=== PATIENT | female | born 1950 | race Two or more races ===

== ENCOUNTER → 2017-05-02 | Outpatient (CLI) | payer BC ==
[2014-03-02 05:23] VITALS: BP 116/54
[~2017-05-02] MED LIST: ACET325T9 PO; ASPI-482 PO; ATOR10TA PO
--- NOTE | 2017-05-02 14:09 | KCIC ---
Examination: Ultrasound soft tissue neck HISTORY: History of lump in the left neck COMPARISON: None available Findings: The visualized left neck there is a 1.5 cm kidney gibson shaped structure inferior to the left ear likely a lymph node. The visualized parotid gland appears somewhat mildly heterogenous. IMPRESSION: 1. 1.5 cm lymph node identified inferior to the to the left ear. 2. Mild heterogeneous appearance of the parotid gland, nonspecific. CT can be performed if there is suspicion of parotitis. Electronically signed by: Apollo Garcia MD (05/02/2017 2:06 PM) [place] [id number]
== END | disposition home or self-care (01) ==
LOC: KCIC US 12:59
PROVIDERS: ATTEND Nurse Practitioner Family
DX: R22.1 Localized swelling, mass and lump, neck (principal)
CPT/HCPCS: 76536

== ENCOUNTER → 2019-06-12 | Outpatient (CLI) | payer MEDICARE ==
[2014-03-02 05:23] VITALS: BP 116/54
--- NOTE | 2019-06-12 13:44 | KCIC ---
EXAM: Right hip, 2 views; lumbar spine, 5 views. HISTORY: Pain. COMPARISON: None. FINDINGS: Right hip: 2 views of the right hip are obtained. There is no fracture, dislocation or subluxation. There is moderate marginal femoral head and acetabular spurring. There is degenerative subchondral sclerosis involving the articular aspect of the femoral head and acetabulum. There is partial this lesion of a left hip arthroplasty. There is a clip within the right lower quadrant. Lumbar spine: 5 views of the lumbar spine are obtained. There is minimal grade 1 anterolisthesis of L4 and L5 and L5 on S1, measuring 2 mm. There is minimal retrolisthesis of L2 on L3 and L3 on L4, a component of which is likely projectional. There is a chronic appearing mild superior endplate depression at T12. There is endplate remodeling at all levels. There is facet arthropathy predominantly at the mid lower lumbar levels. IMPRESSION: 1. Moderate right hip osteoarthritis. 2. Multilevel degenerative change involving the lumbar spine, described above. Electronically signed by: Malinda Joseph MD (06/12/2019 1:41 PM) [place] [id number]
--- NOTE | 2019-06-12 17:44 | KCIC ---
Bilateral digital screening mammograms with 3-D tomosynthesis: Reason for examination: Routine screening. Comparison is made to previous studies dated 07/12/2016 and 12/20/2014. Bilateral mammograms in CC and oblique projections were obtained with 2-D imaging and 3-D tomosynthesis imaging on a Siemens Inspiration unit and reviewed on the workstation. Interpretation was made with the benefit of CAD. The skin and nipples show no abnormalities. No abnormal axillary lymph nodes are seen. The breast parenchyma shows scattered fatty and fibroglandular density. (Breast density: Category B.) There appears to be a new nodular parenchymal density in the 10:00 B position of the right breast. There is also a small circumscribed nodule in the retroareolar 3:00 position of the left breast. Further evaluation of these findings with ultrasound is recommended. There are no other dominant masses, suspicious calcifications or architectural distortion. Impression: Nodular densities at the 10:00 B position of the right breast and retroareolar 3:00 position of the left breast. Recommend further evaluation with ultrasound. BI-RADS Category 0: Incomplete. Needs additional imaging evaluation. "Our facility is accredited by the [employer] Mammography Program." This patient's information has been entered into a reminder system for the patient to be notified with the results of her examination and a target date for the next mammogram. Electronically signed by: Eduarda Adorno MD (06/12/2019 5:41 PM) [facility]
== END | disposition home or self-care (01) ==
LOC: KCIC MAMMO 12:30
PROVIDERS: ATTEND Family Medicine
DX: N64.89 Other specified disorders of breast (principal); N63.20 Unspecified lump in the left breast, unspecified quadrant; N63.10 Unspecified lump in the right breast, unspecified quadrant; M16.11 Unilateral primary osteoarthritis, right hip; M47.896 Other spondylosis, lumbar region; Z12.31 Encounter for screening mammogram for malignant neoplasm of breast
CPT/HCPCS: 72110; 73502; 77063; 77067

== ENCOUNTER → 2019-06-26 | Outpatient (CLI) | payer MEDICARE ==
[2014-03-02 05:23] VITALS: BP 116/54
--- NOTE | 2019-06-26 10:21 | KCIC ---
BREAST BILATERAL Clinical Indication: Abnormal screening mammogram. Comparison: Bilateral mammogram 06/12/2019 and 2016. TECHNIQUE: Real-time ultrasound imaging of the right and left breast is performed. Findings: Right: No definite sonographic abnormality is identified at the 10:00 B position. There is no abnormal axillary lymph node. Left: Corresponding to the nodular density in the left breast retroareolar 3:00 position, there is a solid-appearing mass measuring 5 x 4 x 5 mm. Radially the mass appears to be taller than wide. No posterior shadowing is appreciated. There is no abnormal axillary lymph node. IMPRESSION: 1. In the retroareolar 3:00 position of the left breast there is a 5 mm mass with indeterminate features. Recommend further evaluation with ultrasound-guided biopsy. 2. Yard Person discussed the results with the patient. Dr. Thomas left a message for Dr. Herrmann psychiatric assistant at 10:17 AM. 3. BI-RADS Category 4, suspicious. Electronically signed by: Raul Thomas MD (06/26/2019 10:18 AM) [facility]
== END | disposition home or self-care (01) ==
LOC: KCIC US 09:01
PROVIDERS: ATTEND Family Medicine
DX: N63.23 Unspecified lump in the left breast, lower outer quadrant (principal)
CPT/HCPCS: 76641

== ENCOUNTER → 2019-07-24 | Outpatient (CLI) | payer MEDICARE ==
[2014-03-02 05:23] VITALS: BP 116/54
[~2019-07-24] MED LIST changes: +BIMA2.5D EACHEYE; +VENTOLIN HFA8 G1 IH
--- NOTE | 2019-07-24 16:02 | RAD ---
Examination: US GUID NDL PLACE/ASPI/BX, DIGITAL DIAGNOSTIC LT History: Left breast mass Comparison/Correlation: Left breast ultrasound exam 06/26/2019 Findings: Risks and benefits of ultrasound-guided left breast biopsy with marker placement were discussed with the patient and informed consent was obtained. Cleansing with alcohol based solution was performed about the nipple and lateral aspect of the left breast. Sterile drapes were placed. A total of 7 cc 1 percent lidocaine was administered in the lateral approach towards the mass. Additional lidocaine was provided medial to the mass with a 22-gauge spinal needle after scalpel incision was made and an introducer was placed. 12-gauge core biopsy needle was placed in prefired state into the mass lesion. Total 4 passes were made and 4 specimens were placed within the formalin chart. Minimal bleeding was noted during the examination minimal hemorrhage along the needle tract was seen during the exam. Clip marker was then deployed at the approximate site of the mass lesion which is no longer clearly delineated following obtaining of the 4 passes. The patient tolerated procedure well without immediate complications. Two-view left mammographic examination was then performed demonstrating the clip marker in place. A mass lesion seen on previous mammographic examination could not be delineated on this postbiopsy exam. No collection suspected. Impression: Successful left breast biopsy by ultrasound guidance. The patient tolerated the procedure well without significant immediate complications. Electronically signed by: Willian Dacosta MD (07/24/2019 3:59 PM) [facility]
--- NOTE | 2019-07-25 15:07 | PATHOLOGY ---
[facility] Accession Number: [id number] . 01 Material submitted: . breast - LEFT BREAST MASS, 3:00 RETROAREOLAR. Modifiers: left, 3:00 . 01 Clinical history: . Left breast mass 3:00 retroareolar 0.4 cm . 02 Diagnosis: Breast tissue, left breast subareolar mass at 3:00: - Intraductal papilloma with periductal sclerosis. (JPM:juan antonio; 07/25/2019) QMS 07/25/2019 1331 Local . 02 Comment: There is no atypia or evidence of malignancy. . 02 Electronically signed: . Chris Montez MD, Pathologist NPI- [id number] . 01 Gross description: . The specimen is received in formalin, labeled "Erika Alvarado, left breast" and consists of 4 needle cores of pink-saenz fibroadipose tissue measuring between 0.4 cm and 1.3 cm in length and 0.2-0.3 cm each in diameter. They are entirely submitted in A1-A3. The time obtained is 9:10 AM on 07/24/2019 and the time of formalin is 11:15 AM. The cold ischemic time is 5 minutes and the total formalin fixation time is greater than 6 hours but less than 72 hours. (SDY; 07/24/2019) SYU/SYU 07/24/2019 1521 Local . 02 Pathologist provided ICD-10: D24.2 . 02 CPT . 259627 Specimen Comment: A courtesy copy of this report has been sent to [phone] Specimen Comment: [phone], Specimen Comment: Report sent to ,DR MORRISSEY / DR JACOBSON Performed at: 01 [facility] [address], [place] [id number] MD Mateo Mena MD Phone: [phone] Performed at: 02 [facility] [address], [place] [id number] MD Chris Montez MD Phone: [phone]
== END ==
LOC: US 07:53
PROVIDERS: ATTEND Surgery
DX: N63.20 Unspecified lump in the left breast, unspecified quadrant (principal); D24.2 Benign neoplasm of left breast
CPT/HCPCS: 19083; 77065; 88305; C1713; 19081; 76942

== ENCOUNTER 2019-08-02 07:35 | Day surgery (SDC) | payer MEDICARE ==
[~2019-08-02] VITALS: Ht 155.6 cm; Wt 110.0 kg
[~2019-08-02 07:35] MED LIST changes: +HYDROmorphone 2 MG/ML VIAL IV PRN; +IV RINGERS,LACTATED 1000ML 1,000 ML IV SCH; +LIDOCAINE 1% PF 2 ML VIAL. ID PRN; +MORPHINE SULFATE 2 MG/ML VIAL. IV PRN; +ONDANSETRON PF 4 MG/2 ML VIAL. IV PRN; +PROCHLORPERAZINE 10 MG/2 ML VIAL. IV PRN; +fentaNYL PF VIAL 100 MCG/2 ML VIAL IV PRN
[2019-08-02] MEDS ORDERED: LIDOCAINE 2% PF 5 ML VIAL. ONE (08:31)
[2019-08-02] MEDS ORDERED: PROPOFOL 20 ML IV ONE (08:31)
[2019-08-02] MEDS ORDERED: DEXAMETHASONE SOD PHOS 4 MG/ML VIAL ONE (08:31)
[2019-08-02] MEDS ORDERED: ONDANSETRON PF 4 MG/2 ML VIAL. ONE (08:32)
[2019-08-02] MEDS ORDERED: fentaNYL PF VIAL 100 MCG/2 ML VIAL ONE (08:32)
[2019-08-02] MEDS ORDERED: BUPIVACAINE MPF 0.5% 30 ML VIAL. ONE (09:00)
[2019-08-02] MEDS ORDERED: MIDAZOLAM HCL/PF 2 MG/2 ML VIAL. ONE (10:21)
[2019-08-02] MEDS ORDERED: ePHEDrine PF IN SALINE 50 MG/10 ML SYRINGE. IV ONE (10:35)
--- NOTE | 2019-08-02 11:04 | RAD ---
DATE: 08/02/2019. EXAM: Ultrasound-guided left breast needle localization, digital left diagnostic mammography. HISTORY: Intraductal papilloma. Needle localization is requested.. COMPARISON: 07/24/2019. FINDINGS: Breast Density: SCATTERED The breast parenchyma shows scattered fibroglandular densities. Breast parenchyma level B.. The procedure along with its risks and benefits worst point to the patient. She agreed to proceed. A timeout procedure was performed. The biopsy duct and postbiopsy clip at the left 3:00 periareolar position were visualized sonographically. The overlying skin was sterilely prepped and infiltrated with 1% lidocaine for local anesthesia. Under ultrasound guidance, a needle-wire system was advanced through and beyond the targeted duct adjacent to the clip. The wire was deployed and the needle withdrawn. There were no immediate complications. Digital images of the left breast were obtained in CC and low projections and interpreted on a dedicated workstation. Post localization mammography demonstrates the tip of the wire at the postbiopsy clip. The specimen radiograph demonstrates the wire and postbiopsy clip in the specimen. Impression: 1. Successful ultrasound-guided left breast needle localization. 2. Post localization mammography demonstrates the wire in concordance with a target. 3. The wire and postbiopsy clip are included on the specimen radiograph.
[2019-08-02] MEDS ORDERED: SEVOFLURANE 31 TO 60 MINUTES. IH ONE (11:05)
--- NOTE | 2019-08-02 11:18 | DISCH ---
DISCHARGE INSTRUCTIONS Condition on Discharge Condition on Discharge: Stable Activity After Discharge Activity Instructions for Disc: Activity as tolerated, Avoid exertion Lifting Instructions after Dis: No heavy lifting Driving Instructions after Dis: Do not drive today, Other, see below Diet after Discharge Diet after Discharge: Cardiac Diet Texture: Regular Wound Incision Care Wound/Incision Care: Ice to area for comfort Other wound/incision instructi: may shower Tuesday Contacting the DRMaikol after DC Call your doctor for: Concerns you may have Follow-Up Follow up with: Joseph two weeks Treatment/Equipment after DC Adaptive Equipment Issued: None KRISTAL MORRISSEY MD Aug 02, 2019 11:18
[2019-08-02] MEDS ORDERED: HYDROcodone/APAP 5/325MG 1 TAB TABLET PO ONE (11:45)
[2019-08-02 12:10] VITALS: BP 102/51
--- NOTE | 2019-08-02 12:22 | PDOC ---
BRIEF OPERATIVE NOTE Date: Aug 02, 2019 Pre-Op Diagnosis papilloma left breast Post-Op Diagnosis same Procedure Performed excision after needle localization Surgeon Joseph Anesthesia Type: General Blood Loss 5cc IV Fluid 600cc Specimens Obtained left breast tissue, 2:00 Findings specimen radiograph shows wire and biopsy marker Complications none Operative Note Wk # [id number] KRISTAL MORRISSEY MD Aug 02, 2019 12:22
--- NOTE | 2019-08-02 14:44 | OP ---
DATE OF SURGERY: 08/02/2019 PREOPERATIVE DIAGNOSIS: Papilloma, left breast. POSTOPERATIVE DIAGNOSIS: Papilloma, left breast. PROCEDURE: Excision after needle localization. SURGEON: Kristal Morrissey MD ANESTHESIA: General LMA. ESTIMATED BLOOD LOSS: 5 mL. INTRAVENOUS FLUIDS: 600 mL. INDICATIONS: The patient is a 68-year-old with a biopsy showing papilloma. She is brought for excision. OPERATIVE REPORT: The patient went to the mammography suite where she underwent needle localization of the previously placed biopsy clip associated with the changes. She was then brought to the OR, given a general LMA and the left breast prepped and draped in usual sterile fashion. A circumareolar incision from 12-3 o'clock was infiltrated with local anesthetic, incised and dissection carried down to the wire. The tissue around the tip of the wire corresponding to the mammographic changes was excised. Specimen sent to Radiology where specimen radiograph confirmed the presence of the biopsy clip and the wire. Hemostasis with cautery. When a correct sponge count was obtained, the wound was closed by approximating the breast tissue with 3-0 Vicryl. Skin closed with a subcuticular 4-0 Monocryl. Steri-Strips and sterile dressing applied. The patient awakened from her anesthetic and taken to the recovery room in satisfactory condition. KRISTAL MORRISSEY MD DR: KALEN/nts JOB#: [id number] / [id number]
[2019-08-28] MEDS ORDERED: LATA2.5D3 EACHEYE (10:19)
[2019-08-28] MEDS ORDERED: ATOR20TA58 PO (10:20)
== END 2019-08-02 12:40 | disposition home or self-care (01) ==
LOC: SURG 07:35
PROVIDERS: ATTEND Surgery
DX: D24.2 Benign neoplasm of left breast (principal); E78.00 Pure hypercholesterolemia, unspecified; M79.7 Fibromyalgia; H40.9 Unspecified glaucoma; E66.01 Morbid (severe) obesity due to excess calories; Z68.41 Body mass index [BMI] 40.0-44.9, adult; Z96.642 Presence of left artificial hip joint; Z87.891 Personal history of nicotine dependence; Z98.890 Other specified postprocedural states
CPT/HCPCS: 19083; 19125; 76098; 77065; 88305; A7015; J0171; J1100; J1956; J2001; J2250; J2405; J2704; J3010; J3490; 76942

== ENCOUNTER → 2019-08-28 | Outpatient (CLI) | payer MEDICARE ==
[2019-08-02 12:10] VITALS: BP 102/51
[~2019-08-28] MED LIST changes: +ATOR20TA58 PO; -HYDROmorphone 2 MG/ML VIAL IV PRN; -IV RINGERS,LACTATED 1000ML 1,000 ML IV SCH; +LATA2.5D3 EACHEYE; -LIDOCAINE 1% PF 2 ML VIAL. ID PRN; -MORPHINE SULFATE 2 MG/ML VIAL. IV PRN; -ONDANSETRON PF 4 MG/2 ML VIAL. IV PRN; -PROCHLORPERAZINE 10 MG/2 ML VIAL. IV PRN; -fentaNYL PF VIAL 100 MCG/2 ML VIAL IV PRN
[2019-08-28 10:54] LABS: CALCIUM 9.1 mg/dL (8.5-10.1); CREATININE 0.9 mg/dL (0.6-1.0); GFR 62.3
[2019-08-28 11:07] LABS: BASO % 1 % (0-3); EOS # 0.2 x10^3/uL (0.0-0.7); EOS % 5 % (0-3); HEMATOCRIT 41.3 % (36.0-47.0); HEMOGLOBIN 13.6 g/dL (12.0-15.5); LYMPH # 1.5 x10^3/uL (1.0-4.8); LYMPH % 28 % (24-48); MEAN CORPUSCULAR HEMOGLOBIN 29 pg (25-35); MEAN CORPUSCULAR HGB CONC 33 g/dL (31-37); MEAN CORPUSCULAR VOLUME 89 fL (79-100); MONO # 0.5 x10^3/uL (0.0-1.1); MONO % 9 % (0-9); NEUT # 3.1 x10^3/uL (1.8-7.7); NEUT % 58 % (31-73); PLATELET COUNT 179 x10^3/uL (140-400); RED BLOOD COUNT 4.63 x10^6/uL (3.50-5.40); RED CELL DISTRIBUTION WIDTH 13.8 % (11.5-14.5); WHITE BLOOD COUNT 5.4 x10^3/uL (4.0-11.0)
[2019-08-28 11:15] LABS: PROTHROMBIN TIME PATIENT 12.4 SEC (11.7-14.0)
--- NOTE | 2019-08-28 11:19 | EKG ---
[facility] [address] [place] [address] Test Date: 2019-08-28 Test Time: 10:55:18 Pat Name: BHUMIKA RAMON Department: Room: Gender: F Insurance Rater: : 1950 Requested By: CHRIS INIGUEZ Order Number: [id number] Reading MD: Perry Lopez Measurements Intervals [place] Rate: 68 P: 47 MD: 174 QRS: 41 QRSD: 78 T: 63 QT: 390 QTc: 419 Interpretive Statements SINUS RHYTHM NORMAL ECG RI6.01 Compared to ECG 02/27/2014 20:54:03 No significant changes Electronically Signed On 08-30-2019 11:30:00 ADMINISTRATIVE SECRETARY by Perry Lopez
--- NOTE | 2019-08-28 12:17 | RAD ---
EXAM: Chest, 2 views. HISTORY: Hip surgery. Preoperative evaluation. COMPARISON: None. FINDINGS: 2 views of the chest are obtained. There is no infiltrate, pleural effusion or pneumothorax. The heart is normal in size. IMPRESSION: No acute pulmonary finding. Electronically signed by: Malinda Joseph MD (08/28/2019 12:14 PM) [facility]
[2019-08-29 00:07] LABS: HEMOGLOBIN A1C 5.7 % (4.8-5.6)
--- NOTE | 2019-08-29 14:30 | NUR ---
Faxed pretesting results to Dr Sanders and Dr Herrmann office. Left a message with Gege @ Dr Sanders's office regarding the order for mobic and gabapentin. Patient is hesitant to take these meds because of allergic reaction. Patient has anaphylaxis to both ibuprofen and naproxen. Gabapentin made her "foggy" and trouble with balance.
== END | disposition home or self-care (01) ==
LOC: SURGPAT 09:51
PROVIDERS: ATTEND Orthopaedic Surgery
DX: Z01.818 Encounter for other preprocedural examination (principal); M16.11 Unilateral primary osteoarthritis, right hip
CPT/HCPCS: 36415; 71046; 80048; 82040; 82306; 83036; 85025; 85610; 85651; 85730; 87641; 93005

== ENCOUNTER 2019-09-11 07:55 | Inpatient (IN) | payer MEDICARE ==
[2019-09-11] VITALS (9 sets, daily range): BP systolic 89–124; BP diastolic 47–73
[~2019-09-11] VITALS: Ht 168.3 cm; Wt 110.0 kg
[~2019-09-11 07:55] MED LIST changes: +CLINDAMYCIN 900MG PREMIX 50 ML IV PRN; +EPINEPHRINE INT ART ONE; +NORMAL SALINE INT ART ONE; +ROPIVACAINE 0.5% INT ART ONE; +TRANEXAMIC ACID 1,000 MG in IV NORMAL SALINE 50ML 50 ML INJ ONE
[2019-09-11] MEDS ORDERED: TRANEXAMIC ACID 1,000 MG in IV NORMAL SALINE 50ML 50 ML INJ ONE (08:00)
[2019-09-11] MEDS ORDERED: ACETAMINOPHEN 500 MG TABLET PO ONE ×2 (08:36→09:30)
[2019-09-11] MEDS ORDERED: WARF-78 PO (09:33)
[2019-09-11] MEDS: IV RINGERS,LACTATED 1000ML 1,000 ML IV SCH ×2 (09:36→23:05)
[2019-09-11] MEDS ORDERED: ONDANSETRON PF 4 MG/2 ML VIAL. ONE (09:36)
[2019-09-11] MEDS ORDERED: DEXAMETHASONE SOD PHOS 4 MG/ML VIAL ONE (09:36)
[2019-09-11] MEDS ORDERED: LIDOCAINE 2% PF 5 ML VIAL. ONE (09:36)
[2019-09-11] MEDS ORDERED: fentaNYL PF VIAL 100 MCG/2 ML VIAL ONE ×2 (09:36→16:07)
[2019-09-11] MEDS ORDERED: PROPOFOL 20 ML IV ONE (09:36)
[2019-09-11] MEDS ORDERED: ROCURONIUM 50 MG/5 ML VIAL. ONE (09:36)
[2019-09-11 09:44] LABS: PROTHROMBIN TIME PATIENT 12.6 SEC (11.7-14.0)
--- NOTE | 2019-09-11 11:41 | HP ---
ADMIT DATE: 09/11/2019 CHIEF COMPLAINT: Right hip pain. HISTORY OF PRESENT ILLNESS: The patient is a 68-year-old female in for planned total hip arthroplasty that has been having a several year history of right hip pain, gradually worsening, now very limiting for her activities of daily living. She also has some back problems and lumbar radiculopathy history and more remote left total hip arthroplasty by Dr. Grossman in 2009 that did very well. 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 PAST SURGICAL HISTORY: Recent breast biopsy, which she reports as negative, hysterectomy, appendectomy, left total hip arthroplasty in 2009, heart catheterization in 2013, and colonoscopy 2011. FAMILY HISTORY: Mom is at 91 years old. Father of a stroke and diabetes at 63. Brother of blood clots, and diabetes. Sister with breast cancer, diabetes and on dialysis. SOCIAL HISTORY: She is a former smoker over 10 years since she last smoked and is retired. No alcohol or drug use. MEDICATIONS: List is reviewed. ALLERGIES: INCLUDE PENICILLIN THAT GIVES HER A RASH. CODEINE ALSO A RASH. IBUPROFEN ANAPHYLAXIC, ALEVE THROAT SWELLING AND TRAMADOL A RASH AND SHE SAID SHE CANNOT TOLERATE GABAPENTIN VERY WELL DUE TO AN UNDESCRIBED, BUT LESS SEVERE REACTION. REVIEW OF SYSTEMS: CONSTITUTIONAL: Negative for any chest pain, shortness of breath, recent febrile illness. She does have a retina surgery that is pending later on due to some ongoing problems. Recent breast biopsy was negative. No other constitutional symptoms. HEENT: Atraumatic, normocephalic. HEART: Regular rate and rhythm. LUNGS: Clear to auscultation bilaterally. ABDOMEN: Benign. EXTREMITIES: Examination of the right hip shows significant pain with any attempted range of motion of the right hip. Left hip has excellent range, well-healed incision from previous total hip arthroplasty. Normal alignment and stability of bilateral knees and ankles. IMAGING: X-rays show severe joint line narrowing and degenerative changes of the right hip. IMPRESSION: Degenerative right hip. TREATMENT PLAN: I had gone over with her previously the risks, benefits, postoperative course of total hip arthroplasty including the possibility of nerve or blood vessel damage, leg length inequality, continued pain, premature wear or loosening, instability, medical or other anesthetic complications among others. She is certainly familiar with the process going through it in the past. All her questions were answered and she is going to undergo right total hip arthroplasty today, posterior approach with [facility] admission to follow. CHRIS INIGUEZ MD DR: LUTHER/abdelrahman JOB#: [id number] / [id number]
[2019-09-11] MEDS ORDERED: IV NORMAL SALINE 1000ML BAG 1,000 ML IV SCH (12:22)
[2019-09-11] MEDS ORDERED: CALCIUM CARBONATE 500 MG TAB.CHEW PO PRN (12:30)
[2019-09-11] MEDS ORDERED: DEXTROSE 50% 25 GM / 50ML DISP.SYRIN. IV PRN (12:30)
[2019-09-11] MEDS ORDERED: ZOLPIDEM 5 MG TABLET. PO PRN (12:30)
[2019-09-11] MEDS ORDERED: CLINDAMYCIN 900MG PREMIX 50 ML IV SCH (12:30)
[2019-09-11] MEDS ORDERED: diphenhydrAMINE 50 MG/ML VIAL IV PRN (12:30)
[2019-09-11] MEDS ORDERED: PROCHLORPERAZINE 5 MG TABLET. PO PRN (12:30)
[2019-09-11] MEDS ORDERED: 0.9 % SODIUM CHLORIDE 10 ML DISP.SYRIN. IV PRN (12:30)
[2019-09-11] MEDS ORDERED: MORPHINE SULFATE 2 MG/ML VIAL. IV PRN (12:30)
[2019-09-11] MEDS ORDERED: IV DEXTROSE 5% 250 ML BAG. IV PRN (12:30)
[2019-09-11] MEDS ORDERED: fentaNYL PF VIAL 100 MCG/2 ML VIAL IV PRN ×4 (12:30→15:30)
[2019-09-11] MEDS ORDERED: NEOSTIGMINE METHYLSULFATE 5 MG/5 ML SYRINGE. ONE (13:55)
[2019-09-11] MEDS ORDERED: GLYCOPYRROLATE 1 MG/5 ML VIAL. ONE (13:55)
[2019-09-11] MEDS ORDERED: SEVOFLURANE 61 TO 120 MINUTES. IH ONE (14:11)
[2019-09-11] MEDS ORDERED: IV RINGERS,LACTATED 1000ML 1,000 ML IV SCH ×2 (14:54→15:28)
[2019-09-11] MEDS: fentaNYL PF VIAL 100 MCG/2 ML VIAL IV PRN ×4 (14:56→16:20)
[2019-09-11] MEDS ORDERED: ONDANSETRON PF 4 MG/2 ML VIAL. IV PRN ×2 (15:00→15:30)
[2019-09-11] MEDS ORDERED: LIDOCAINE 1% PF 2 ML VIAL. ID PRN ×2 (15:00→15:30)
[2019-09-11] MEDS ORDERED: PROCHLORPERAZINE 10 MG/2 ML VIAL. IV PRN (15:30)
[2019-09-11] MEDS: PROCHLORPERAZINE 10 MG/2 ML VIAL. IV PRN ×2 (15:44→16:15)
[2019-09-11] MEDS ORDERED: MORPHINE SULFATE 2 MG/ML VIAL. IV ONE (15:45)
--- NOTE | 2019-09-11 15:57 | PDOC4 ---
Operative Note Operative Note Date of surgery: 09/11/2019 Preoperative diagnosis: Degenerative joint disease right hip Postoperative diagnosis: Same Operative procedure: Right total hip arthroplasty Surgeon: Marilyn Assist: Chandan Merino nurse practitioner Anesthesia: Gen. Estimated blood loss: 200 mL Complications: None Operative indications: Please see my preoperative clinic note and dictated history and physical for detailed operative indications and note that preo peratively we did cover the possibility of infection nerve or blood vessel damage leg length inequality instability premature wear or loosening medical or other anesthetic complications among others she wishes to proceed with surgical evaluation and treatment with joint center admission to follow. Operative text: Patient was identified procedure verified patient placed in the supine position on the operating table. After adequate amounts of general anesthesia were administered she was placed decubitus right side up using the Stulberg hip positioner and the right hip was prepped and draped in standard sterile fashion. After timeout was performed patient procedure identified and verified a curvilinear incision was made centered over the greater trochanter iliotibial band and gluteal fascia were divided in line with their fibers Charnley retractor was placed external rotators were divided from their insertion hip capsule was split in a T fashion hip was dislocated femoral neck cut was made with the reference cutting guide and the femoral head was noted to be degenerative measured at a size 47 mm and sent for pathological evaluation. The acetabulum was exposed contents of the fovea and labrum were excised and reaming carried up to a size 51 were excellent bleeding bone was obtained throughout and the cup sufficiently medialized to the medial wall and a size 52 [employer] coated cluster hole hemispherical cup was impacted in place in proper version a single superiorly directed screw 30 mm in length provided exc ellent fixation and a 36 mm standard liner was impacted engaging the locking mechanism. The femur was then prepared with a box osteotome and reamed and broached up to a size 13. Trial fitting revealed some instability with a standard offset component and to counteract some of her tightness in extension leg lengths were equalized with a high offset component and a -3 36 mm head whic h provided excellent stability equalized leg lengths and reproduced offset. Trial components removed thorough irrigation carried out normal saline solution using pulse lavage and a size 13 high offset synergy porous coated femoral component was impacted into place and a -3 36 mm Oxinium femoral head was impacted into place and was reduced with equivalent stability showing stability to about 70 internal rotation at 90 hip flexion. Hip capsule was repaired with #5 Ethibond external rotators were reattached transosseously with #5 Ethibond. Hemovac drain and pain catheter were placed pain catheter mixture was injected throughout the joint capsule and fascia was then closed with interrupted #5 Ethibond suture and reinforced with a #1 PDS strata fix barbed suture. Subcutaneous closure with buried Vicryl suture skin closure with 30 strata fix Monocryl. A jessica dressing with Acticoat was placed and patient was returned to recovery room in stable condition having tolerated procedure well. Chandan Merino nurse practitioner was present for the procedure and assisted in the patient positioning prepping draping retraction and skin closure CHRIS INIGUEZ MD Sep 11, 2019 15:57
--- NOTE | 2019-09-11 16:01 | RAD ---
EXAM: Pelvis and right hip, 3 views. HISTORY: Arthroplasty. COMPARISON: None. FINDINGS: A frontal view of the pelvis and frontal and lateral views of the right hip are obtained. There are bilateral hip arthroplasties in expected position. There is right hip soft tissue gas and a soft tissue drain due to recent surgery. There is a generator overlying the right flank. IMPRESSION: Bilateral hip arthroplasties in expected position. Electronically signed by: Malinda Joseph MD (09/11/2019 3:58 PM) [place] [id number]
[2019-09-11] MEDS ORDERED: WARFARIN 7.5 MG TABLET. PO ONE (16:34)
[2019-09-11] MEDS ORDERED: ALBUTEROL SULFATE 2.5 MG/3 ML NEBU. NEB PRN (17:00)
[2019-09-11] MEDS: FERROUS SULFATE 325 MG TABLET. PO SCH (17:42)
[2019-09-11] MEDS: oxyCODONE IR 5 MG TABLET PO PRN ×2 (17:45→21:55)
[2019-09-11] MEDS: ONDANSETRON PF 4 MG/2 ML VIAL. IV SCH (17:46)
[2019-09-11] MEDS: ONDANSETRON ODT 4 MG TAB.RAPDIS. PO SCH (17:46)
--- NOTE | 2019-09-11 18:25 | NUR ---
Patient arrived around 1647 in a bed from PACU. Family at bedside. Patient on oxygen at this time running at 2L. WILLY's in place. Dressing to right hip dry and intact with hemovac and IAC present. DENIA box flashing with green light. She is able to move all extremities independently without any complaints or concerns. NO numbness or tingling noted. Pulse + in bilateral feet. Her pain is being rated around a 6 and states she is super uncomfortable. Patient was transferred shortly after admission to a chair which seemed to improve her pain as well. IV in left hand infusing properly at this time without any complications. Will continue to monitor.
[2019-09-11] MEDS: CLINDAMYCIN 900MG PREMIX 50 ML IV SCH (20:22)
[2019-09-11] MEDS: ATORVASTATIN CALCIUM 20 MG TABLET PO SCH (20:23)
[2019-09-11] MEDS: LATANOPROST 0.005% OPHTH SOLUTION 2.5ML BOTTLE. OU SCH (20:23)
[2019-09-12] MEDS: CLINDAMYCIN 900MG PREMIX 50 ML IV SCH ×2 (01:11→08:56)
[2019-09-12 01:42] VITALS: BP 115/60
[2019-09-12 05:10] LABS: HEMATOCRIT 35.2 % (36.0-47.0); HEMOGLOBIN 11.3 g/dL (12.0-15.5)
[2019-09-12 05:24] LABS: PROTHROMBIN TIME PATIENT 13.6 SEC (11.7-14.0)
[2019-09-12] MEDS ORDERED: MAGNESIUM HYDROXIDE 2,400 MG/30 ML ORAL.SUSP. PO PRN (06:00)
[2019-09-12] MEDS: ONDANSETRON ODT 4 MG TAB.RAPDIS. PO SCH ×3 (06:16→12:00)
[2019-09-12] MEDS: ONDANSETRON PF 4 MG/2 ML VIAL. IV SCH ×3 (06:16→12:00)
[2019-09-12 06:17] VITALS: BP 115/69
[2019-09-12] MEDS: oxyCODONE IR 5 MG TABLET PO PRN ×5 (06:21→19:41)
--- NOTE | 2019-09-12 08:00 | NUR ---
up in the recliner for breakfast. states she did not sleep last night. she is painful and is rating her pain "6". she denies that it is a flare up of her fibromyalgia. iac given and states the recliner is helping. encouraged to sleep in recliner if it is more comfortable. plan of care discussed. . she has good sensation, motion and pulses bilateral lower extremities.
[2019-09-12] MEDS: ACETAMINOPHEN 500 MG TABLET PO SCH ×3 (08:56→21:22)
[2019-09-12] MEDS: MULTIVITAMIN with MINERAL TABLET. PO SCH (08:56)
[2019-09-12] MEDS: SENNOSIDES/DOCUSATE 8.6/50MG TABLET. PO SCH (08:56)
[2019-09-12] MEDS: FERROUS SULFATE 325 MG TABLET. PO SCH ×2 (08:56→17:18)
--- NOTE | 2019-09-12 11:15 | NUR ---
returned from 1 st rehab session early and was feeling hot flushed and "not right" thinks she is exhausted--didn't sleep last night or the night before and just tired. blood pressure is 126/73 -81-20 and o2 sat 96%. rests quietly in recliner with feet elevated in a dimmed room.
[2019-09-12] MEDS ORDERED: ONDANSETRON PF 4 MG/2 ML VIAL. IV PRN (12:00)
[2019-09-12] MEDS ORDERED: ONDANSETRON ODT 4 MG TAB.RAPDIS. PO PRN (12:00)
--- NOTE | 2019-09-12 13:21 | PDOC ---
PROGRESS NOTES Subjective Subjective Pain moderate, no other complaints. Objective Vital Signs Vital Signs Date Time Temp Pulse Resp B/P (MAP) Pulse Ox O2 Delivery O2 Flow Rate FiO2 09/12/19 13:09 Room Air 09/12/19 07:21 18 94 09/12/19 06:17 98.6 91 115/69 (84) 98.6 09/11/19 23:30 2.0 Physical Exam Dressing intact and dry. Hemovac in place. Not sure that she still has a pain catheter (op note indicates one was placed.) Thigh and calf soft. Good active range of motion of foot including dorsiflexion and plantar flexion. Cap refill at toes intact. No signs of compartment syndrome, DVT or neurovascular injury. Labs Laboratory Tests Test 09/11/19 09:14 09/12/19 04:35 Prothrombin Time 12.6 SEC (11.7-14.0) 13.6 SEC (11.7-14.0) Prothromb Time International Ratio 1.0 (0.8-1.1) 1.1 (0.8-1.1) Activated Partial Thromboplast Time 30 SEC (24-38) Hemoglobin 11.3 g/dL (12.0-15.5) Hematocrit 35.2 % (36.0-47.0) Mean Corpuscular Hemoglobin Concent 32 g/dL (31-37) Laboratory Tests Test 09/12/19 04:35 Hemoglobin 11.3 g/dL (12.0-15.5) Hematocrit 35.2 % (36.0-47.0) Mean Corpuscular Hemoglobin Concent 32 g/dL (31-37) Prothrombin Time 13.6 SEC (11.7-14.0) Prothromb Time International Ratio 1.1 (0.8-1.1) Assessment Assessment POD 1 MIKE Plan Plan of Care Continue POC GIL FUENTES MD Sep 12, 2019 13:20
[2019-09-12] MEDS ORDERED: BISACODYL 10 MG SUPP.RECT. PR PRN (16:00)
[2019-09-12] MEDS ORDERED: WARFARIN 5 MG TABLET. PO ONE (16:00)
--- NOTE | 2019-09-12 17:02 | NUR ---
Erika was able to attend second rehab without incident. several family at bedside. Dr. Daily made rounds. she has good pulses, sensation and pulses bilateral lower extremities
[2019-09-12 18:31] VITALS: BP 129/55
[2019-09-12] MEDS ORDERED: diphenhydrAMINE HCL 25 MG CAPSULE PO PRN (19:45)
[2019-09-12] MEDS: ATORVASTATIN CALCIUM 20 MG TABLET PO SCH (21:22)
[2019-09-12] MEDS: LATANOPROST 0.005% OPHTH SOLUTION 2.5ML BOTTLE. OU SCH (21:22)
--- NOTE | 2019-09-12 21:53 | NUR ---
Surgical dressing changed, IAC and Hemovac removed w/ tips intact. New DENIA dressing applied due to saturation. Site is approximated and bruised. Foam dressing over drain sites. Ambien given per request. Intends to sleep in recliner. Benadryl given for c/o generalized pruritis. No rash. Believes the Roxicodone is causing the itch.
[2019-09-13] MEDS: ACETAMINOPHEN 500 MG TABLET PO SCH ×4 (03:00→21:01)
[2019-09-13 05:11] LABS: HEMOGLOBIN 11.1 g/dL (12.0-15.5)
[2019-09-13 05:22] LABS: PROTHROMBIN TIME PATIENT 15.8 SEC (11.7-14.0)
[2019-09-13 06:05] VITALS: BP 134/78
--- NOTE | 2019-09-13 06:15 | NUR ---
Slept well in recliner after Sabrinaien x2.
--- NOTE | 2019-09-13 06:38 | PDOC ---
PROGRESS NOTES Subjective Subjective Problems overnight:Hip is sore, slept better in recliner than bed the previous night Objective Vital Signs Vital Signs Date Time Temp Pulse Resp B/P (MAP) Pulse Ox O2 Delivery O2 Flow Rate FiO2 09/13/19 06:05 98.2 76 18 134/78 (96) 94 Room Air 98.2 09/11/19 23:30 2.0 Physical Exam Leg lengths equal distal neurovascular status intact Labs Laboratory Tests Test 09/11/19 09:14 09/12/19 04:35 09/13/19 04:50 Prothrombin Time 12.6 SEC (11.7-14.0) 13.6 SEC (11.7-14.0) 15.8 SEC (11.7-14.0) Prothromb Time International Ratio 1.0 (0.8-1.1) 1.1 (0.8-1.1) 1.3 (0.8-1.1) Activated Partial Thromboplast Time 30 SEC (24-38) Hemoglobin 11.3 g/dL (12.0-15.5) 11.1 g/dL (12.0-15.5) Hematocrit 35.2 % (36.0-47.0) 34.0 % (36.0-47.0) Mean Corpuscular Hemoglobin Concent 32 g/dL (31-37) 33 g/dL (31-37) Laboratory Tests Test 09/13/19 04:50 Hemoglobin 11.1 g/dL (12.0-15.5) Hematocrit 34.0 % (36.0-47.0) Mean Corpuscular Hemoglobin Concent 33 g/dL (31-37) Prothrombin Time 15.8 SEC (11.7-14.0) Prothromb Time International Ratio 1.3 (0.8-1.1) Assessment Assessment POD# 2 total hip Plan Plan of Care WBAT, total hip precautions coumadin CHRIS INIGUEZ MD Sep 13, 2019 06:38
[2019-09-13] MEDS: SENNOSIDES/DOCUSATE 8.6/50MG TABLET. PO SCH (08:13)
[2019-09-13] MEDS: MULTIVITAMIN with MINERAL TABLET. PO SCH (08:13)
[2019-09-13] MEDS: FERROUS SULFATE 325 MG TABLET. PO SCH ×2 (08:13→16:31)
[2019-09-13] MEDS: oxyCODONE IR 5 MG TABLET PO PRN ×4 (08:14→21:01)
[2019-09-13 11:39] VITALS: BP 127/84
--- NOTE | 2019-09-13 11:42 | NUR ---
1135 Summoned to therapy room c/o feeling faint, vs 127/84-61, will continue to observe, will adjust Benadryl to 12.5mg instead of 25mg, family member at side
[2019-09-13] MEDS ORDERED: diphenhydrAMINE ORAL ELIXIR 12.5 MG/5 ML ML PO PRN (13:15)
--- NOTE | 2019-09-13 13:38 | NUR ---
Pharmacy Warfarin Dosing Note S:Pharmacy consulted to assist with anticoagulation therapy started 10/12/18 with target INR: 1.6 - 2.5 O:BHUMIKA RAMON is a 68 year old F with MIKE LABS: Last INR: 1.1 Last HGB: 11.3 Last HCT: Last PLT: Last dose of 5 mg given on 10/12/18 at 1700 Previous Regimen: Vitamin K given: N Drug Interaction Changes: Ongoing Drug Interactions: A:INR of 1.3 is below desired range. Target range for this patient is: 1.6 - 2.5 P: Warfarin dose: 5 mg Today at 1600 Bridge Therapy: Next INR due TOMORROW. Pharmacy anticoagulation service will continue to follow. JEANNE BOLANOS [facility], 09/13/19 6045
[2019-09-13] MEDS ORDERED: WARFARIN 5 MG TABLET. PO ONE (16:00)
[2019-09-13 18:34] VITALS: BP 96/59
--- NOTE | 2019-09-13 18:36 | NUR ---
Blood pressure 96/59 continuing to encourage hydration, stated she feels better this evening since taking a nap, will continue to observe
[2019-09-13] MEDS: LATANOPROST 0.005% OPHTH SOLUTION 2.5ML BOTTLE. OU SCH (21:00)
[2019-09-13] MEDS: ATORVASTATIN CALCIUM 20 MG TABLET PO SCH (21:01)
[2019-09-14] MEDS: ACETAMINOPHEN 500 MG TABLET PO SCH ×2 (03:52→09:45)
[2019-09-14] MEDS: oxyCODONE IR 5 MG TABLET PO PRN ×2 (03:52→11:47)
[2019-09-14 05:56] LABS: HEMATOCRIT 31.3 % (36.0-47.0); HEMOGLOBIN 10.5 g/dL (12.0-15.5)
[2019-09-14 06:06] LABS: PROTHROMBIN TIME PATIENT 16.9 SEC (11.7-14.0)
[2019-09-14 06:20] VITALS: BP 116/62
[2019-09-14] MEDS: FERROUS SULFATE 325 MG TABLET. PO SCH (07:49)
[2019-09-14] MEDS: MULTIVITAMIN with MINERAL TABLET. PO SCH (07:51)
[2019-09-14] MEDS: SENNOSIDES/DOCUSATE 8.6/50MG TABLET. PO SCH (07:51)
--- NOTE | 2019-09-14 10:52 | NUR ---
Pharmacy Warfarin Dosing Note S: Pharmacy consulted to assist with anticoagulation therapy started 10/12/18 O: BHUMIKA RAMON is a 68 year old F with MIKE LABS: Last INR: 1.4 Last HGB: 10.5 Last HCT: 31.3 Last PLT: - Last dose of 5 mg given on 09/13/19 at 1631 Vitamin K given: N A:INR of 1.4 is below desired range. Target range for this patient is: 1.6 - 2.5 P: Warfarin dose: 5 mg Prior to discharge and daily Next INR due Tuesday to be drawn by home health RN Pharmacy anticoagulation service will continue to follow. Gauri Pope RPH, 09/14/19 1165
--- NOTE | 2019-09-14 11:52 | SNU/HH DC ---
DISCHARGE WITH HOME HEALTH DISCHARGE INFORMATION: Condition on Discharge: Stable CODE STATUS: Code Status: Full HOME HEALTH: Face to Face: I certify this patient is under my care and that I, or a nurse practitioner or physician's human resources assistant working with me, had a face to face encounter that meets the physician face to face encounter requirements with this patient on [09/14/19]. RN For Eval/Treatment: Yes Physical Therapy For: Evalulation/Treatment Pt Meets Homebound Status: Limited distance walking POST DISCHARGE ORDERS: Activity Instructions for Disc: Activity as tolerated, Progressive ambulation (standard total hip precautions on left) Weight Bearing Status after Di: Full weight bearing Bathing Instructions: Shower-keep dressing dry, No Tub Bath until see Wound/Incision Care: Ice to area for comfort, Keep wound elevated, Do not change dressing FOLLOW-UP: Follow Up With: Dr. Sanders in 10-14 days [phone] Warfarin Follow UP: [facility] pharmacy [phone] TREATMENT/EQUIPMENT ORDERS: Adaptive Equipment Issued: Walker CERTIFICATION STATEMENT: Certification Statement: Certification Statement: Based on the above finding, I certify that this patient is confined to the home and needs intermittent alf care, physical therapy and/or speech therapy, or continues to need occupational therapy.~ This patient is under my care, and I have initiated the establishment of the plan of care.~ This patient will be followed by myself or a community physician who will periodically review the plan of care. Home Meds Reported Medications Warfarin Sodium (COUMADIN) 5 Mg Tablet, 5 MG PO DAILY PRN for ONE for 1 Day, #1 TAB 09/11/19 Atorvastatin Calcium (ATORVASTATIN CALCIUM) 20 Mg Tablet, 20 MG PO HS for FOR CHOLESTEROL, #30 TAB 0 Refills 08/28/19 Latanoprost (LATANOPROST) 2.5 Ml Drops, 1 DROP EACHEYE QHS for glaucoma, #7.5 ML 3 Refills 08/28/19 Albuterol Sulfate (Ventolin Hfa) 8 Gm Hfa.aer.ad, 1 GM IH QIDPRN PRN for CONGESTION, INHALER 08/01/19 CHRIS SANDERS MD Sep 14, 2019 11:51
--- NOTE | 2019-09-14 12:27 | DS ---
DATE OF DISCHARGE: 09/14/2019 ORTHOPEDIC DISCHARGER SUMMARY DISPOSITION: Discharge to home with home health. DISCHARGE INSTRUCTIONS ACTIVITY: Weightbearing as tolerated, standard total hip precautions. Maintain DENIA dressing. Call if saturated, also call if any fever, chills, uncontrolled pain or other problems. DISCHARGE MEDICATIONS: Include oxycodone 10/325 one p.o. q.4h. p.r.n. pain, Coumadin as directed by anticoagulation clinic. Continue albuterol, atorvastatin, and latanoprost eye drops. Follow up with Dr. Sanders in 2 weeks postoperative. BRIEF DESCRIPTION OF HOSPITAL COURSE: The patient underwent uneventful total hip arthroplasty. Overall, did well with physical therapy in terms of progression with her ambulation and transfers safety and strength. She got a little bit woozy with her pain medications occasionally. I told her she could manage that by taking either one tablet or one half tablet if she is having less pain only as necessary. Coumadin will be managed by the pharmacy on an ongoing basis. She otherwise came through her progress well and remained medically stable throughout her stay and was discharged in stable condition. CHRIS SANDERS MD DR: LUTHER/abdelrahman JOB#: [id number] / [id number]
[2019-09-14] MEDS ORDERED: OXYC20TA PO ×2 (12:51→12:55)
[2019-09-14] MEDS ORDERED: OXYC10TA PO (12:58)
[2019-09-14] MEDS ORDERED: WARFARIN 5 MG TABLET. PO ONE (14:00)
[2019-09-14 14:54] VITALS: BP 115/66
--- NOTE | 2019-09-14 15:25 | NUR ---
Discharge instructions given with prescription. Answered questions and concerns. Verbalized understanding. Pt discharged home accompanied by family.
--- NOTE | 2019-09-15 10:07 | PATHOLOGY ---
[facility] Accession Number: [id number] . 01 Material submitted: . hip - RIGHT HIP BONE AND TISSUE. Modifiers: right . 01 Clinical history: . Osteoarthritis . 02 Diagnosis: Femoral head, right total hip arthroplasty: - Degenerative arthritis. . (JPM:mm; 09/14/2019) [facility] 09/14/2019 1057 Local . 02 Electronically signed: . Chris Montez MD, Pathologist NPI- [id number] . 01 Gross description: . The specimen is received in formalin, labeled "Erika Alvarado, right hip bone and tissue". Received is a femoral head measuring 5.4 x 4.9 x 4.1 cm in greatest dimensions. The articular surface is irregular in contour with a moderate amount of eburnation present, as well as osteophytic lipping. Sectioning reveals yellow-saenz cut surfaces with no grossly distinct nodules or lesions. The specimen is submitted representatively in cassette A1, following decalcification. ([facility]; 09/13/2019) QAC/QA 09/13/2019 0845 Local . 02 Pathologist provided ICD-10: M16.11 . 02 CPT . 124909, 320143 Specimen Comment: A courtesy copy of this report has been sent to [phone] Specimen Comment: [id number] Specimen Comment: Report sent to / DR JACOBSON Performed at: 01 [facility] [address], [place] [id number] MD Mateo Mena MD Phone: [phone] Performed at: 02 [facility] [address], [place] [id number] MD Chris Montez MD Phone: [phone]
== END 2019-09-14 15:25 | disposition home health service (06) | DRG 470 ==
LOC: OPSVCIP 07:55 → 4 SOUTHEST 16:17
PROVIDERS: ADMIT Orthopaedic Surgery; ATTEND Orthopaedic Surgery
PROC: 0SR906Z Replacement of Right Hip Joint with Oxidized Zirconium on Polyethylene Synthetic Substitute, Open Approach (ICD-10-PCS; principal; 2019-09-11 10:00)
DX: M16.11 Unilateral primary osteoarthritis, right hip (principal); M54.16 Radiculopathy, lumbar region; M79.7 Fibromyalgia; H40.9 Unspecified glaucoma; Z80.3 Family history of malignant neoplasm of breast; Z82.3 Family history of stroke; Z83.3 Family history of diabetes mellitus; Z87.891 Personal history of nicotine dependence; Z90.710 Acquired absence of both cervix and uterus; Z96.643 Presence of artificial hip joint, bilateral; Z90.49 Acquired absence of other specified parts of digestive tract
CPT/HCPCS: 36415; 73502; 85014; 85018; 85610; 85730; 86850; 86900; 86901; A7015; C1713; J0171; J0780; J1100; J2001; J2270; J2405; J2704; J2710; J2795; J3010; J3490; J7030; J7120; Q0163; 97116; 97150; 97530; 97535; G0378

== ENCOUNTER → 2020-02-26 | Outpatient (CLI) | payer MEDICARE ==
[~2020-02-26] MED LIST changes: -CLINDAMYCIN 900MG PREMIX 50 ML IV PRN; -EPINEPHRINE INT ART ONE; -NORMAL SALINE INT ART ONE; +OXYC10TA PO; +OXYC20TA PO; -ROPIVACAINE 0.5% INT ART ONE; -TRANEXAMIC ACID 1,000 MG in IV NORMAL SALINE 50ML 50 ML INJ ONE; +WARF5TAB2 PO
--- NOTE | 2020-02-26 10:30 | RAD ---
DATE: 02/26/2020 10:00 AM EXAM: MAMMO SOUMYA DIAG LT HISTORY: Six-month follow-up benign left breast excisional biopsy for an intraductal papilloma COMPARISON: Screening mammogram of June 12, 2019 and left breast post needle localization mammogram of 08/02/2019. TECHNIQUE: Left CC and MLO views of the breasts were performed. Bilateral breast tomosynthesis was performed in CC and MLO projections. This study was interpreted with the benefit of Computerized Aided Detection (CAD). FINDINGS: Breast Density: FATTY The Breast Parenchyma is primarily fatty replaced. Breast parenchyma level density A. No suspicious masses, microcalcifications or architectural distortion is present to suggest malignancy in either breast. The visualized axillae are unremarkable. IMPRESSION: No mammographic evidence of malignancy. BI-RADS CATEGORY: 1 NEGATIVE RECOMMENDED FOLLOW-UP: 3M 3 MONTH FOLLOW-UP Annual screening mammography is recommended, unless clinically indicated sooner based on symptoms or change in physical exam. Patient will be due for bilateral screening mammogram on June 13, 2020. PQRS compliance statement: Patient information was entered into a reminder system with a target due date 06/13/2020 for the next mammogram. Mammography is a sensitive method for finding small breast cancers, but it does not detect them all and is not a substitute for careful clinical examination. A negative mammogram does not negate a clinically suspicious finding and should not result in delay in biopsying a clinically suspicious abnormality. "Our facility is accredited by the [employer] Mammography Program."
== END | disposition home or self-care (01) ==
LOC: MAMMO 10:00
PROVIDERS: ATTEND Surgery
DX: R92.8 Other abnormal and inconclusive findings on diagnostic imaging of breast (principal); N64.89 Other specified disorders of breast
CPT/HCPCS: 77065; G0279; 77061

== ENCOUNTER → 2021-01-27 | Outpatient (CLI) | payer MEDICARE ==
--- NOTE | 2021-01-27 14:23 | RAD ---
EXAM: Bilateral breast diagnostic mammogram with tomosynthesis; bilateral breast sonogram. HISTORY: 70-year-old female presents with left breast pain. TECHNIQUE: Full-field digital craniocaudal and mediolateral oblique 2D and 3D tomosynthesis images of both breasts are obtained for evaluation. Computer aided detection was applied. Sonographic imaging of both breasts targeted to sites of mammographic nodularity and axillary regions was performed. COMPARISON: 02/26/2020, 08/02/2019, 07/24/2019, 06/26/2019, 06/12/2019, 07/12/2016. BREAST PARENCHYMAL DENSITY: Level B - Scattered fibroglandular densities. FINDINGS: There is a mass within the 10:00 position of the right breast at mid depth. There is a circ umscribed nodular density within the superficial soft tissues of the anterior 12:00 position of the l eft breast. There has been interval surgical excision of a biopsy clip at the site of a biopsy-proven papilloma within the anterior left breast. There is calcification. Sonographic imaging of the right breast demonstrates a 9 mm mass with irregular margins, taller than wide morphology and internal blood flow at the 11:00 position 8 cm from the nipple. This corresponds with the mammographic finding of concern. There is a right axillary lymph node with thickened cortex measuring 1.5 cm in long axis. No additional lesion is seen within the right breast. Sonographic imaging of the left breast demonstrates a 5 mm suspected sebaceous cyst within the subcut aneous fat at the 12:00 position 2 cm from the nipple, corresponding with the mammographic nodule of concern. There is no suspicious lesion within the left breast. IMPRESSION: 1. 9 mm mass within the 11:00 position of the right breast 8 cm the nipple and 1.5 cm right axillary lymph node with suspicious morphology. Sonographic guided biopsy of both lesions is recommended. 2. Tiny suspected benign sebaceous cyst within the anterior 12:00 position of the left breast. 3. BI-RADS Category 5: Highly suggestive of malignancy. Sonographic and biopsy of the right breast a nd right axilla is recommended, as described above. These findings and recommendations were discussed with the patient and were communicated with the [facility] physician office at 1400 hours on 01/27/2021. If your mammogram demonstrates that you have dense breast tissue, which could hide abnormalities, and if you have other risk factors for breast cancer that have been identified, you might benefit from s upplemental screening tests that may be suggested by your ordering physician. Dense breast tissue, i n and of itself, is a relatively common condition. This information is not provided to cause undue c oncern, but rather to raise your awareness and to promote discussion with your physician regarding th e presence of other risk factors, in addition to dense breast tissue. A report of your mammography re sults will be sent to you and your physician. You should contact your physician if you have any ques tions or concerns regarding this report. Mammography is a sensitive method for finding small breast cancers, but it does not detect them all a nd is not a substitute for careful clinical examination. A negative mammogram does not negate a clin ically suspicious finding and should not result in delay in biopsying a clinically suspicious abnorma lity. PQRS compliance statement - Patient information was entered into a reminder system with a target due date for the next mammogram. "Our facility is accredited by the [employer] Mammography Program." Electronically signed by: Malinda Joseph MD (01/27/2021 2:21 PM) [id number]
== END ==
LOC: MAMMO 13:01
PROVIDERS: ATTEND Family Medicine
DX: N63.11 Unspecified lump in the right breast, upper outer quadrant (principal); N64.4 Mastodynia; N60.02 Solitary cyst of left breast
CPT/HCPCS: 76641; 77066; G0279; 77062

== ENCOUNTER → 2021-02-06 | Outpatient (CLI) | payer MEDICARE ==
[~2021-02-06] MED LIST changes: +DULO60CA6 PO; +HYDR-2759 PO; +HYDR-2761 PO; +vitamin d PO
--- NOTE | 2021-02-06 10:05 | RAD ---
EXAM: Sonographic guided right breast biopsy; sonographic guided right axillary lymph node biopsy; so nographic guided biopsy clip placement; right breast post plasty mammogram. HISTORY: 70-year-old with a history of left breast cancer, status post left breast conservation thersheba lopez, presents for sonographic guided biopsy of a mass within the right breast and a suspicious right a xillary lymph node. TECHNIQUE: The risks of the procedure discussed with the patient and written and verbal consent was o btained. A timeout was performed. Sonographic imaging of the right breast and axilla was performed an d the lesion of concern at the 11:00 position 8 cm from the nipple and a right axillary lymph node wi th thickened cortex were identified. The skin overlying both lesions was sterilely prepped, draped an d infiltrated with lidocaine. Multiple core samples were obtained through both lesions of concern usi ng sonographic guidance. Biopsy clips were advanced into both biopsy beds. Manual compression was iam ntained until hemostasis achieved. Sterile bandages were placed. A post biopsy mammogram demonstrates the biopsy clip in expected position at the 11:00 position. The biopsy clip within the right axilla is excluded from the [id number]. However, this is confirmed within the left axillary lymph node of concern on sonographic images. The patient tolerated the procedure without complication and was disc harged in stable condition. IMPRESSION: Sonographic guided biopsy of a mass within the 11:00 position of the right breast and a r ight axillary lymph node with thickened cortex. An addendum to this report will be [facility] Electronically signed by: Malinda Joseph MD (02/06/2021 10:03 AM) [id number]
--- NOTE | 2021-02-06 10:05 | RAD ---
EXAM: Sonographic guided right breast biopsy; sonographic guided right axillary lymph node biopsy; so nographic guided biopsy clip placement; right breast post plasty mammogram. HISTORY: 70-year-old with a history of left breast cancer, status post left breast conservation thersheba lopez, presents for sonographic guided biopsy of a mass within the right breast and a suspicious right a xillary lymph node. TECHNIQUE: The risks of the procedure discussed with the patient and written and verbal consent was o btained. A timeout was performed. Sonographic imaging of the right breast and axilla was performed an d the lesion of concern at the 11:00 position 8 cm from the nipple and a right axillary lymph node wi th thickened cortex were identified. The skin overlying both lesions was sterilely prepped, draped an d infiltrated with lidocaine. Multiple core samples were obtained through both lesions of concern usi ng sonographic guidance. Biopsy clips were advanced into both biopsy beds. Manual compression was iam ntained until hemostasis achieved. Sterile bandages were placed. A post biopsy mammogram demonstrates the biopsy clip in expected position at the 11:00 position. The biopsy clip within the right axilla is excluded from the [id number]. However, this is confirmed within the left axillary lymph node of concern on sonographic images. The patient tolerated the procedure without complication and was disc harged in stable condition. IMPRESSION: Sonographic guided biopsy of a mass within the 11:00 position of the right breast and a r ight axillary lymph node with thickened cortex. An addendum to this report will be submitted [facility]. Electronically signed by: Malinda Joseph MD (02/06/2021 10:03 AM) [id number]
--- NOTE | 2021-02-06 10:05 | RAD ---
EXAM: Sonographic guided right breast biopsy; sonographic guided right axillary lymph node biopsy; so nographic guided biopsy clip placement; right breast post plasty mammogram. HISTORY: 70-year-old with a history of left breast cancer, status post left breast conservation thersheba lopez, presents for sonographic guided biopsy of a mass within the right breast and a suspicious right a xillary lymph node. TECHNIQUE: The risks of the procedure discussed with the patient and written and verbal consent was o btained. A timeout was performed. Sonographic imaging of the right breast and axilla was performed an d the lesion of concern at the 11:00 position 8 cm from the nipple and a right axillary lymph node wi th thickened cortex were identified. The skin overlying both lesions was sterilely prepped, draped an d infiltrated with lidocaine. Multiple core samples were obtained through both lesions of concern usi ng sonographic guidance. Biopsy clips were advanced into both biopsy beds. Manual compression was iam ntained until hemostasis achieved. Sterile bandages were placed. A post biopsy mammogram demonstrates the biopsy clip in expected position at the 11:00 position. The biopsy clip within the right axilla is excluded from the [id number]-mc-joke. However, this is confirmed within the left axillary lymph node of concern on sonographic images. The patient tolerated the procedure without complication and was disc harged in stable condition. IMPRESSION: Sonographic guided biopsy of a mass within the 11:00 position of the right breast and a r ight axillary lymph node with thickened cortex. An addendum to this report will be submitted when [facility]. Electronically signed by: Malinda Joseph MD (02/06/2021 10:03 AM) [id number]
--- NOTE | 2021-02-11 18:06 | PATHOLOGY ---
[facility] Accession Number: [id number] . 01 Material submitted: . PART A: breast - RIGHT BREAST TISSUE 1100 8CM FN. Modifiers: right, 11:00, 8CM FROM NIPPLE PART B: axillary tail of breast - RIGHT AXILLARY NODE TISSUE. Modifiers: right . 01 Clinical history: . A: RIGHT BREAST MASS 11 8CM FN A: RIGHT BREAST BIOPSY . B: ENLARGED RIGHT AXILLARY NODE B: RIGHT AXILLARY NODE BIOPSY . 02 Diagnosis: A. Breast tissue, right breast mass 11:00 8 cm from nipple needle biopsies: - Ductal carcinoma in situ, low-grade, cribriform type. . B. Segments of lymph node and fibroadipose tissue, right axillary node needle biopsies: - Negative for tumor. (JPM:juan antonio; 02/11/2021) S 02/11/2021 1108 Local . 02 Comment: Sections of the right breast mass 11:00 8 cm from nipple needle biopsy reveal three cores of breast tissue. Each of the cores reveals a segmental area displaying an atypical intraductal epithelial proliferation. These ducts are distended by a proliferation of relatively uniform ductal epithelial cells possessing low grade nuclei. The atypical cells have a cribriform arrangement. There is no evidence of necrosis within the distended ducts. All three cores are involved with the largest segment of involvement measuring 8 mm in greatest dimension. There are a few scattered tubular structures present within the adjacent surrounding stroma. There are no tumor associated calcifications. A panel of immunoperoxidase stains is obtained and yields the following results: . CK5/6 (A1): Atypical intraductal epithelial proliferation negative. p63 (A1): Presence of myoepithelial cells around distended ducts and present within small tubules. Smooth muscle myosin heavy chain (A1): Presence of myoepithelial cells around distended ducts and present within small tubules. CK5/6 (A2): Atypical intraductal epithelial proliferation negative. p63 (A2): Presence of myoepithelial cells around periphery of distended ducts and present within small tubules. Smooth muscle myosin heavy chain (A2): Presence of myoepithelial cells around distended ducts and present within small tubules. . . The morphologic and immunophenotypic findings are supportive of the diagnosis of ductal carcinoma in situ, low grade, cribriform type. . Sections of the right axilary lymph node needle biopsy reveal segments of lymph node and fibroadipose tissue. The lymphoid tissue shows reactive lymphoid hyperplasia. There are several lymphoid follicles present which possess reactive germinal centers containing tingible body macrophages. Immunoperoxidase stains for AE1/AE3 are obtained and yield the following results: . AE1/AE3 (B1): Negative for tumor. AE1/AE3 (B2): Negative for tumor. . Breast prognostic studies for DCIS are obtained on block A2, the results of which will be reported separately. . The case is also examined by Dr. Lange, who concurs with the diagnosis. (JPM:juan antonio; 02/11/2021) . Special stains performed on A1: CK5/6, p63, smooth muscle myosin heavy chain. On A2: CK5/6, p63 and smooth muscle myosin heavy chain, and on B1: AE1/AE3 and B2: AE1/AE3. . 02 Electronically signed: . Chris Montez MD, Pathologist NPI- [id number] . 01 Gross description: . A. The specimen is received in formalin, labeled "Erika Alvarado, right breast 11:00 8 cm from nipple" received as multiple soft proctor-yellow tissue cores measuring up to 1.3 cm x 0.2 cm. The specimen is entirely submitted A1-A2. The specimen is removed from the patient at 0907 hours and placed in formalin at 0909 hours on Saturday, February 06, 2021. The specimen is removed from formalin at 11:30pm. The specimen is in formalin for greater than 6 hours and less than 72 hours. . B. The specimen is received in formalin, labeled "Erika Alvarado, right axillary node tissue" received as multiple soft proctor-yellow tissue cores measuring up to 1.3 cm x 0.2 cm. The specimen is entirely submitted B1-B2. The specimen is removed from the patient at 0920 hours and placed in formalin at 0922 hours on Saturday, February 06, 2021. The specimen is removed from formalin at 11:30pm. The specimen is in formalin for greater than 6 hours and less than 72 hours. ([facility]; 02/06/2021) CLEMENCIA/CLEMENCIA 02/06/20212001 Local . 02 Pathologist provided ICD-10: D05.11 . 02 CPT . 282582, 867991, R88741, D18805 Specimen Comment: A courtesy copy of this report has been sent to [phone], [phone] Specimen Comment: [id number] Specimen Comment: Report sent to / DR JACOBSON Performed at: 01 [facility] [address], [place] [id number] MD Андрей Goldman MD Phone: [phone] Performed at: 02 [facility] [address] [place], [place] [id number] MD Chris Montez MD Phone: [phone]
== END ==
LOC: US 08:09
PROVIDERS: ATTEND Family Medicine
DX: D05.11 Intraductal carcinoma in situ of right breast (principal)
CPT/HCPCS: 19083; 19084; 77065; 88305; 88341; 88342; 88361; A4648

== ENCOUNTER 2021-03-02 07:02 | Day surgery (SDC) | payer MEDICARE ==
[~2021-03-02] VITALS: Ht 167.6 cm; Wt 105.4 kg
[~2021-03-02 07:02] MED LIST changes: -HYDR-2759 PO; -HYDR-2761 PO; +HYDROmorphone 2 MG/ML VIAL IVP PRN; +MORPHINE SULFATE 2 MG/ML VIAL. IVP PRN; +PROCHLORPERAZINE 10 MG/2 ML VIAL. IVP PRN; +fentaNYL PF VIAL 100 MCG/2 ML VIAL IVP PRN
[2021-03-02 07:33] VITALS: BP 134/66
[2021-03-02] MEDS: IV RINGERS,LACTATED 1000ML 1,000 ML IV SCH ×2 (07:38→09:21)
[2021-03-02] MEDS ORDERED: PROPOFOL 10 MG/ML (20ML) VIAL. IV ONE (07:45)
[2021-03-02] MEDS ORDERED: LIDOCAINE 2% PF 5 ML VIAL. ONE (07:45)
[2021-03-02] MEDS ORDERED: ONDANSETRON PF 4 MG/2 ML VIAL. ONE (07:45)
[2021-03-02] MEDS ORDERED: DEXAMETHASONE SOD PHOS 4 MG/ML VIAL ONE (07:45)
[2021-03-02] MEDS ORDERED: fentaNYL PF VIAL 100 MCG/2 ML VIAL ONE (07:46)
[2021-03-02] MEDS ORDERED: ISOSULFAN BLUE 1% 50 MG/5 ML VIAL. SQ ONE (08:52)
[2021-03-02] MEDS ORDERED: BUPIVACAINE-EPI 0.5%-1:200000 MPF 30 ML VIAL. ONE ×2 (08:52→08:59)
[2021-03-02] MEDS ORDERED: SEVOFLURANE 31 TO 60 MINUTES. IH ONE (09:56)
--- NOTE | 2021-03-02 10:05 | RAD ---
EXAM: US NDL LOC WIRE BREAST, MG DIAGNOSTICUNILAT MAMMO 03/02/2021 8:11 AM INDICATION: Wire localization for lumpectomy COMPARISON: Right breast mammogram and ultrasound 02/06/2021 and 01/27/2021 TECHNIQUE/FINDINGS: The purpose of the procedure, risks and benefits were explained to the patient. Informed consent was obtained. A timeout was performed. The patient was placed supine on the ultrasound table. The hypoechoic mass at 11:00 8 cm from the nip ple in the right breast was identified and overlying skin marked, prepped, draped in standard sterile fashion. Skin was anesthetized with 1 percent lidocaine. Next, a 7.5 cm needle localization wire was advanced into the mass and the wire deployed under continuous ultrasound visualization. The needle w as removed and wire secured to the skin. Post wire placement mammogram was obtained demonstrating jessica ropriate position of the wire within the mass. On ultrasound, the tip of the wire appears to be 9 mm beyond the mass. On mammogram the tip of the wi re appears to be approximately 5 mm beyond the mass on CC view, and the tip of the wire is 5.8 cm fro m the skin entrance marked by a BB.. The biopsy clip is 2 mm posterior to the wire on CC view and 4 m m posterior to the wire on ML view. IMPRESSION:Technically successful ultrasound-guided wire localization of right breast mass, and post wire localization mammogram. Electronically signed by: Haylee Thrasher MD (03/02/2021 10:03 AM) [id number]
[2021-03-02] MEDS ORDERED: HYDR-2761 PO (10:52)
--- NOTE | 2021-03-02 10:57 | DISCH ---
DISCHARGE INSTRUCTIONS Condition on Discharge Condition on Discharge: Stable Activity After Discharge Activity Instructions for Disc: Resume previous activity Diet after Discharge Diet after Discharge: Regular Wound Incision Care Wound/Incision Care: Other, see below (keep dressing clean and dry X 72 hours, may then remove and shower) Contacting the after DC Call your doctor for: Concerns you may have Follow-Up Follow up with: Dr Andujar in 1 week in office, call for appointment [phone] BETO ANDUJAR MD Mar 02, 2021 10:57
[2021-03-02] MEDS ORDERED: HYDR-2759 PO (10:59)
--- NOTE | 2021-03-02 11:04 | PDOC4 ---
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 The plan is to proceed with surgical treatment and she is interested in breast conservation with the lumpectomy. The risks of surgery were discussed which include bleeding, infection, anesthetic risk, pain, scar tissue, wound healing problems, potential need for additional surgery procedure. She understands and would like to proceed. Description: The patient was taken to the operating room and placed supine on the operating table. General anesthesia was performed. The right breast was prepped with ChloraPrep and draped in a standard surgical manner. The wire was seen exiting the lateral aspect of the right breast. An incision was made adjacent to the wire slightly superior to the nipple. Cautery dissection was carried down into the breast parenchyma. The wire was identified and followed with dissection to its termination. With primarily cautery a generous sized lumpectomy was performed. The breast parenchyma was and the dissection was carried all the way down to the chest wall. In a medial to lateral fashion the lumpectomy specimen was taken off the chest wall. A short silk suture marked the superficial margin and a long silk suture marked the lateral margin. The specimen was sent to x-ray where the tip of the wire and clip were readily identified. Additional superior and inferior margins were taken from the lumpectomy cavity which were sent separately as specimen. Hemostasis was achieved with cautery. The subcutaneous tissue was closed with 3-0 Vicryl and the skin approximated with 4-0 Monocryl. The wound was infiltrated with half percent Marcaine with epinephrine. Steri-Strips and a sterile dressing were applied. The patient tolerated the procedure well and was sent to the recovery room in stable condition. At the end of the case all counts were correct. BETO ANDUJAR MD Mar 02, 2021 11:04
--- NOTE | 2021-03-02 11:28 | RAD ---
EXAM: MG DIGITAL BILAT DIAGNOSTIC MAMMO WITH SOUMYA 03/02/2021 10:31 AM CLINICAL INDICATION: Postsurgical lumpectomy specimen COMPARISON: Post wire localization mammogram 03/02/2021 TECHNIQUE: Mammogram of the surgical specimen was obtained. FINDINGS: The entire mass, biopsy clip, and localization wire are contained within the specimen. IMPRESSION: Post-lumpectomy surgical specimen as described. Electronically signed by: Haylee Thrasher MD (03/02/2021 11:25 AM) [id number]
[2021-03-02 11:45] VITALS: BP 112/41
== END 2021-03-02 12:30 | disposition home or self-care (01) ==
LOC: SURG 07:02
PROVIDERS: ATTEND Surgery
DX: D05.11 Intraductal carcinoma in situ of right breast (principal); R92.8 Other abnormal and inconclusive findings on diagnostic imaging of breast; E66.9 Obesity, unspecified; M79.7 Fibromyalgia; M19.90 Unspecified osteoarthritis, unspecified site; Z80.3 Family history of malignant neoplasm of breast; Z83.3 Family history of diabetes mellitus; Z98.49 Cataract extraction status, unspecified eye; Z98.890 Other specified postprocedural states; Z90.49 Acquired absence of other specified parts of digestive tract; Z90.710 Acquired absence of both cervix and uterus; Z90.721 Acquired absence of ovaries, unilateral; Z96.643 Presence of artificial hip joint, bilateral; Z82.3 Family history of stroke; Z88.0 Allergy status to penicillin; Z88.5 Allergy status to narcotic agent; Z91.040 Latex allergy status; Z88.8 Allergy status to other drugs, medicaments and biological substances; Z82.49 Family history of ischemic heart disease and other diseases of the circulatory system
CPT/HCPCS: 19285; 19301; 76098; 77065; C1819; J1100; J1956; J2405; J2704; J3010; A4209; A4930; A6254; A6258; Q9968

== ENCOUNTER → 2021-03-31 | Outpatient (CLI) | payer MEDICARE ==
[2021-03-02 11:45] VITALS: BP 112/41
[~2021-03-31] MED LIST changes: -DULO60CA6 PO; +DULO60CA7 PO; +HYDR-2759 PO; +HYDR-2761 PO; -HYDROmorphone 2 MG/ML VIAL IVP PRN; -MORPHINE SULFATE 2 MG/ML VIAL. IVP PRN; -PROCHLORPERAZINE 10 MG/2 ML VIAL. IVP PRN; -fentaNYL PF VIAL 100 MCG/2 ML VIAL IVP PRN
[2021-04-09 09:03] LABS: ANTITHROMBIN III SEE SEPARATE REPORT; PROTEIN C ACTIVITY SEE SEPARATE REPORT; PROTEIN S TOTAL SEE SEPARATE REPORT
== END ==
LOC: ONCLAB 14:37
PROVIDERS: ATTEND Internal Medicine Hematology & Oncology
DX: D68.59 Other primary thrombophilia (principal); Z83.2 Family history of diseases of the blood and blood-forming organs and certain disorders involving the immune mechanism
CPT/HCPCS: 36415; 81240; 81241; 85300; 85302; 85305

== ENCOUNTER 2021-09-01 09:03 | Inpatient (IN) | payer MEDICARE ==
[~2021-09-01] VITALS: Ht 167.6 cm; Wt 104.0 kg
--- NOTE | 2021-09-01 09:05 | PHYS DOC ---
Past Medical History Past Medical History: Fibromyalgia, Glaucoma, Hypertension Past Surgical History: Appendectomy, Hysterectomy Smoking Status: Former Smoker Alcohol Use: None Drug Use: None General Adult EDM: Chief Complaint: BREAST PROBLEM HPI: HPI: Patient is a 70 year old female who presents with right breast pain, which she just noticed last night. She reports the pain is radiating from her lateral breast to her armpit. She reports that she had subjective fevers and chills and sweating last night. She is febrile on arrival here. She has not taken any antipyretics today. She denies nausea or vomiting. She denies abdominal pain. She denies urinary symptoms. She denies any acute breast trauma. Earlier this year, she underwent lumpectomy of her right breast. She is currently taking oral chemotherapy and she had previously done radiation for breast cancer. She denies chest pain, dyspnea, cough. She has been fully vaccinated against Covid including booster and been vaccinated against influenza. She denies any open skin wounds, denies nipple drainage or discharge. Review of Systems: Review of Systems: Constitutional: Fever and chills Eyes: Denies change in visual acuity. [] HENT: Denies nasal congestion or sore throat. [] Respiratory: Denies cough or shortness of breath. [] Cardiovascular: Denies chest pain or edema. [] GI: Denies abdominal pain, nausea, vomiting, diarrhea : Denies urinary symptoms Musculoskeletal: Denies back pain or joint pain. [] Integument: Skin redness and swelling of the right breast Neurologic: Reports mild headache. Denies focal weakness, numbness, tingling, dizziness or syncope. Psychiatric: Denies depression or anxiety. [] Heart Score: C/O Chest Pain: No Risk Factors: Risk Factors: DM, Current or recent (<one month) smoker, HTN, HLP, family history of CAD, obesity. Risk Scores: Score 0 - 3: 2.5% MACE over next 6 weeks - Discharge Home Score 4 - 6: 20.3% MACE over next 6 weeks - Admit for Clinical Observation Score 7 - 10: 72.7% MACE over next 6 weeks - Early Invasive Strategies Allergies: Allergies: Allergies Coded Allergies Type Severity Reaction Last Updated Verified ibuprofen Allergy Severe Anaphylaxis 03/02/21 No naproxen Allergy Severe 03/02/21 Yes Penicillins Allergy Intermediate hives 03/02/21 No codeine Allergy Intermediate Hives 03/02/21 Yes latex Allergy Intermediate hives 03/02/21 No tramadol Allergy Intermediate Rash 02/27/21 Yes Physical Exam: PE: Constitutional: Well developed, well nourished, no acute distress, non-toxic appearance. [] HENT: Normocephalic, atraumatic, mucous membranes are moist Eyes: Sclera are clear Neck: Normal range of motion, no tenderness, supple, no stridor. Trachea midline. No meningismus. Cardiovascular:Heart rate regular rhythm, +2 radial and posterior tibial pulses bilaterally Lungs & Thorax: Bilateral breath sounds clear to auscultation, no rales, rhonchi or wheezing. There is significant warmth, erythema, induration and soft tissue swelling of her lateral right breast. This appears consistent with cellulitis, there is significant soft tissue swelling, induration, suspected underlying abscess. Abdomen: Bowel sounds normal, soft, no tenderness, no masses, no pulsatile masses. [] Skin: Warm, dry, significant soft tissue swelling, warmth, erythema and induration of the right lateral breast. No nipple drainage. No open wounds. No rash noted. Significant soft tissue tenderness. No palpable crepitus or subcutaneous emphysema. Back: No tenderness, no CVA tenderness. [] Extremities: No tenderness, no cyanosis, no clubbing, ROM intact, no edema. [] Neurologic: Alert and oriented X 3, normal motor function, normal sensory function, no focal deficits noted. [] Psychologic: Affect normal, judgement normal, mood normal. She is pleasant and cooperative. EKG: EKG: [] Radiology/Procedures: Radiology/Procedures: IMAGING REPORT Signed PATIENT: BHUMIKA RAMON ACCOUNT: [id number] : 1950 LOCATION: ER AGE: 70 SEX: F EXAM STATUS: PRE ER ORD. PHYSICIAN: SANDIE ARZOLA DO REASON: cellulitis, suspected abscess PROCEDURE: BREAST RIGHT EXAM: Right breast sonogram. HISTORY: 70-year-old female with a history of right breast cancer, status post lumpectomy performed 03/02/2021, presents with right breast pain and erythema. TECHNIQUE: Sonographic imaging of the right breast targeted to the site of reported concern was performed. COMPARISON: 03/02/2021. FINDINGS: There is a complex fluid collection within the right breast at 10:00 position 9 cm from the nipple measuring 6.1 x 5.5 x 2.9 cm. there is surrounding parenchymal edema. No solid lesion is seen. There is no suspicious axillary lymph node. IMPRESSION: 1. 6.1 cm complex fluid collection with surrounding parenchymal edema within the 10:00 position of the right breast at the site of concern. Given history of i nterval lumpectomy in this location, this is likely due to a postoperative seroma. Given new onset skin erythema and pain in this location, this may be a superinfected seroma/abscess with overlying cellulitis. 2. BI-RADS Category 3: Probably benign finding(s). Short term follow up with a right breast sonogram following interval therapy for suspected cellulitis/abscess is recommended to confirm resolution. Electronically signed by: Malinda Irizarry MD (09/01/2021 9:49 AM) [id number] DICTATED and SIGNED BY: MALINDA IRIZARRY MD DATE: 09/01/21 [id number] 0 Course & Med Decision Making: Course & Med Decision Making Pertinent Labs and Imaging studies reviewed. (See chart for details) I discussed the findings, differential diagnosis and plan of care with the patient. The patient has evidence of complex fluid collection, seroma versus abscess. Clinically, with fever, warmth and erythema and marked tenderness, I suspect infected seroma or abscess. I recommended admission to the hospital. She is given IV vancomycin empirically. Blood cultures are ordered. General nelson rgery will be consulted. The patient is given IV morphine and IV Dilaudid for pain. She is comfortable with the plan for admission. She is accepted for admission by Dr. Singleton. Truong Disclaimer: Truong Disclaimer: This electronic medical record was generated, in whole or in part, using a voice recognition dictation system. Departure Departure Impression: Primary Impression: Abscess of right breast Additional Impressions: History of breast cancer History of lumpectomy of right breast Disposition: ADMITTED INPATIENT Admitting Physician: JAG (Dr. Singleton) Condition: STABLE Referrals: DANIELA JACOBSON MD (PCP) SANDIE ARZOLA DO Sep 01, 2021 09:05
[2021-09-01] MEDS ORDERED: IV NORMAL SALINE 1000ML BAG 1,000 ML IV ONE ×2 (09:30→11:00)
[2021-09-01] MEDS ORDERED: MORPHINE SULFATE 4 MG/ML INJ. IVP ONE (09:30)
[2021-09-01] MEDS ORDERED: ONDANSETRON PF 4 MG/2 ML VIAL. IVP ONE (09:30)
[2021-09-01] MEDS ORDERED: ACETAMINOPHEN 500 MG TABLET PO ONE (09:30)
--- NOTE | 2021-09-01 09:52 | RAD ---
EXAM: Right breast sonogram. HISTORY: 70-year-old female with a history of right breast cancer, status post lumpectomy performed , presents with right breast pain and erythema. TECHNIQUE: Sonographic imaging of the right breast targeted to the site of reported concern was perfo rmed. COMPARISON: 03/02/2021. FINDINGS: There is a complex fluid collection within the right breast at 10:00 position 9 cm from the nipple measuring 6.1 x 5.5 x 2.9 cm. there is surrounding parenchymal edema. No solid lesion is seen . There is no suspicious axillary lymph node. IMPRESSION: 1. 6.1 cm complex fluid collection with surrounding parenchymal edema within the 10:00 position of th e right breast at the site of concern. Given history of interval lumpectomy in this location, this is likely due to a postoperative seroma. Given new onset skin erythema and pain in this location, this may be a superinfected seroma/abscess with overlying cellulitis. 2. BI-RADS Category 3: Probably benign finding(s). Short term follow up with a right breast sonogram following interval therapy for suspected cellulitis/abscess is recommended to confirm resolution. Electronically signed by: Mlainda Joseph MD (09/01/2021 9:49 AM) [id number]
[2021-09-01 10:12] LABS: BASO % 0 % (0-3); EOS % 0 % (0-3); HEMOGLOBIN 12.4 g/dL (12.0-15.5); LYMPH # 1.2 x10^3/uL (1.0-4.8); LYMPH % 8 % (24-48); MEAN CORPUSCULAR HEMOGLOBIN 30 pg (25-35); MEAN CORPUSCULAR HGB CONC 33 g/dL (31-37); MEAN CORPUSCULAR VOLUME 93 fL (79-100); MONO # 1.1 x10^3/uL (0.0-1.1); MONO % 8 % (0-9); NEUT # 11.9 x10^3/uL (1.8-7.7); NEUT % 84 % (31-73); PLATELET COUNT 167 x10^3/uL (140-400); RED BLOOD COUNT 4.11 x10^6/uL (3.50-5.40); RED CELL DISTRIBUTION WIDTH 13.7 % (11.5-14.5); WHITE BLOOD COUNT 14.2 x10^3/uL (4.0-11.0)
[2021-09-01] MEDS ORDERED: VANCOMYCIN 1GM IVPB FOR OMNI 250 ML IV ONE (10:30)
[2021-09-01 11:00] LABS: CALCIUM 8.4 mg/dL (8.5-10.1); GFR 54.8; POTASSIUM 3.9 mmol/L (3.5-5.1)
[2021-09-01] MEDS ORDERED: ONDANSETRON PF 4 MG/2 ML VIAL. IVP PRN ×2 (11:00→13:15)
[2021-09-01] MEDS ORDERED: MORPHINE SULFATE 4 MG/ML INJ. IVP PRN (11:00)
[2021-09-01] MEDS ORDERED: HYDROmorphone 2 MG/ML VIAL IVP ONE (11:30)
[2021-09-01] MEDS: IV NORMAL SALINE 1000ML BAG 1,000 ML IV SCH ×2 (12:45→23:15)
--- NOTE | 2021-09-01 13:13 | PDOC1 ---
History and Physical Date of Service: DOS: DATE: 09/01/21 TIME: 13:09 Chief Complaint: Chief Complain: Breast pain right-sided History of Present Illness: HPI: History obtained from discussion with the ED physician and chart review: 70 year old female who presents with right breast pain, which she just noticed last night. She reports the pain is radiating from her lateral breast to her armpit. She reports that she had subjective fevers and chills and sweating last night. She is febrile on arrival here. She has not taken any antipyretics today. She denies nausea or vomiting. She denies abdominal pain. She denies urinary symptoms. She denies any acute breast trauma. Earlier this year, she underwent lumpectomy of her right breast. She is currently taking oral chem otherapy and she had previously done radiation for breast cancer. She denies chest pain, dyspnea, cough. She has been fully vaccinated against Covid including booster and been vaccinated against influenza. She denies any open skin wounds, denies nipple drainage or discharge. Past Medical/Surgical History: PMH/PSH: Past Medical History: Fibromyalgia, Glaucoma, Hypertension Past Surgical History: Right-sided lumpectomy status post hormonal therapy with tamoxifen and 16 sessions of radiation started in April 2021, appendectomy, Hysterectomy Allergies: Allergies: Coded Allergies: ibuprofen (Unverified Allergy, Severe, Anaphylaxis, 03/02/21) naproxen (Verified Allergy, Severe, 03/02/21) throat swells Penicillins (Unverified Allergy, Intermediate, hives, 03/02/21) codeine (Verified Allergy, Intermediate, Hives, 03/02/21) latex (Unverified Allergy, Intermediate, hives, 03/02/21) tramadol (Verified Allergy, Intermediate, Rash, 02/27/21) Family History: Family History: Reviewed with no relevant findings Social History: Social History: Smoking Status: Former Smoker Alcohol Use: None Drug Use: None Current Medications: Current Medications Current Medications Acetaminophen (Tylenol) 1,000 mg 1X ONCE PO Last administered on 09/01/21at 09:58; Start 09/01/21 at 09:30; Stop 09/01/21 at 09:31; Status DC Sodium Chloride 1,000 ml @ 1,000 mls/hr 1X ONCE IV Last administered on 09/01/21at 10:26; Start 09/01/21 at 09:30; Stop 09/01/21 at 10:29; Status DC Morphine Sulfate (Morphine Sulfate) 4 mg 1X ONCE IVP Last administered on 09/01/21at 09:59; Start 09/01/21 at 09:30; Stop 09/01/21 at 09:31; Status DC Ondansetron HCl (Zofran) 4 mg 1X ONCE IVP Last administered on 09/01/21at 09:58; Start 09/01/21 at 09:30; Stop 09/01/21 at 09:31; Status DC Vancomycin HCl 250 ml @ 250 mls/hr 1X ONCE IV Last administered on 09/01/21at 11:57; Start 09/01/21 at 10:30; Stop 09/01/21 at 11:29; Status DC Ondansetron HCl (Zofran) 4 mg PRN Q8HRS PRN IVP NAUSEA/VOMITING; Start 09/01/21 at 11:00; Stop 09/02/21 at 10:59 Morphine Sulfate (Morphine Sulfate) 4 mg PRN Q2HRS PRN IVP PAIN; Start 09/01/21 at 11:00; Stop 09/02/21 at 10:59 Sodium Chloride 1,000 ml @ 75 mls/hr 1X ONCE IV ; Start 09/01/21 at 11:00; Stop 09/02/21 at 00:19 Hydromorphone HCl (Dilaudid) 0.5 mg 1X ONCE IVP Last administered on 09/01/21at 11:56; Start 09/01/21 at 11:30; Stop 09/01/21 at 11:31; Status DC Active Scripts Active Hydrocodone-Acetamin 5-325 mg (Hydrocodone/Acetaminophen) 1 Each Tablet 1-2 Each PO Q6HRS Reported Cymbalta (Duloxetine Hcl) 60 Mg Capsule.dr 1 Cap PO DAILY [vitamin d] 2,000 Unit PO DAILY Atorvastatin Calcium 20 Mg Tablet 20 Mg PO HS Latanoprost 2.5 Ml Drops 1 Drop EACHEYE QHS Ventolin Hfa (Albuterol Sulfate) 8 Gm Hfa.aer.ad 1 Gm IH QIDPRN PRN ROS: Review of Systems Review of System REVIEW OF SYSTEMS: GENERAL: Denies weakness SKIN: Right-sided breast pain EYES: No blurred, double or loss of vision. NOSE AND THROAT: No history of nosebleeds, hoarseness or sore throat. HEART: No history of palpitations, chest pain or shortness of breath on exertion. LUNGS: Denies cough, hemoptysis, wheezing or shortness of breath. GASTROINTESTINAL: Denies changes in appetite, nausea, vomiting, diarrhea or constipation. GENITOURINARY: No history of frequency, urgency, hesitancy or nocturia. NEUROLOGIC: Denies history of numbness, tingling, or tremor. PSYCHIATRIC: No history of panic, anxiety or depression. ENDOCRINE: No history of heat or cold intolerance, polyuria or polydipsia. EXTREMITIES: Denies joint pain, pain on walking or stiffness. Physical Exam: Vital Signs: Vital Signs Date Time Temp Pulse Resp B/P (MAP) Pulse Ox O2 Delivery O2 Flow Rate FiO2 09/01/21 12:01 82 118/56 (76) 98 Room Air 09/01/21 09:10 100.1 16 100.1 Physcial Exam: General: Well developed, well nourished, no acute distress, well appearing HEENT: Pupils equally round and reactive to light, EOMI, no discharge, normal conjunctiva Neck: Supple, no nuchal rigidity, no JVD, trachea midline, no tenderness Cardiac: RRR, no murmurs, no gallops, no rubs Chest/Lungs: Right-sided chest erythema redness with tenderness to palpation. No purulent drainage or active bleeding. Abdomen: soft, non-distended, no guarding, no peritoneal signs, non-tender Back: No tenderness Extremities: no edema, pulses intact, non-tender,capillary refill <3 sec bilateral upper and lower extremities, Neuro: Alert and oriented x 4, no focal deficits, normal speech Labs: Labs: Laboratory Tests Test 09/01/21 09:55 09/01/21 10:30 09/01/21 12:03 White Blood Count 14.2 x10^3/uL (4.0-11.0) Red Blood Count 4.11 x10^6/uL (3.50-5.40) Hemoglobin 12.4 g/dL (12.0-15.5) Hematocrit 38.0 % (36.0-47.0) Mean Corpuscular Volume 93 fL (79-100) Mean Corpuscular Hemoglobin 30 pg (25-35) Mean Corpuscular Hemoglobin Concent 33 g/dL (31-37) Red Cell Distribution Width 13.7 % (11.5-14.5) Platelet Count 167 x10^3/uL (140-400) Neutrophils (%) (Auto) 84 % (31-73) Lymphocytes (%) (Auto) 8 % (24-48) Monocytes (%) (Auto) 8 % (0-9) Eosinophils (%) (Auto) 0 % (0-3) Basophils (%) (Auto) 0 % (0-3) Neutrophils # (Auto) 11.9 x10^3/uL (1.8-7.7) Lymphocytes # (Auto) 1.2 x10^3/uL (1.0-4.8) Monocytes # (Auto) 1.1 x10^3/uL (0.0-1.1) Eosinophils # (Auto) 0.0 x10^3/uL (0.0-0.7) Basophils # (Auto) 0.0 x10^3/uL (0.0-0.2) Sodium Level 136 mmol/L (136-145) Potassium Level 3.9 mmol/L (3.5-5.1) Chloride Level 102 mmol/L (98-107) Carbon Dioxide Level 29 mmol/L (21-32) Anion Gap 5 (6-14) Blood Urea Nitrogen 12 mg/dL (7-20) Creatinine 1.0 mg/dL (0.6-1.0) Estimated GFR (Cockcroft-Gault) 54.8 Glucose Level 111 mg/dL (70-99) Lactic Acid Level 1.2 mmol/L (0.4-2.0) Calcium Level 8.4 mg/dL (8.5-10.1) Procalcitonin < 0.10 ng/mL (0.00-0.10) SARS-CoV-2 Antigen (Rapid) Negative (NEGATIVE) Laboratory Tests Test 09/01/21 09:55 09/01/21 10:30 09/01/21 12:03 White Blood Count 14.2 x10^3/uL (4.0-11.0) Red Blood Count 4.11 x10^6/uL (3.50-5.40) Hemoglobin 12.4 g/dL (12.0-15.5) Hematocrit 38.0 % (36.0-47.0) Mean Corpuscular Volume 93 fL (79-100) Mean Corpuscular Hemoglobin 30 pg (25-35) Mean Corpuscular Hemoglobin Concent 33 g/dL (31-37) Red Cell Distribution Width 13.7 % (11.5-14.5) Platelet Count 167 x10^3/uL (140-400) Neutrophils (%) (Auto) 84 % (31-73) Lymphocytes (%) (Auto) 8 % (24-48) Monocytes (%) (Auto) 8 % (0-9) Eosinophils (%) (Auto) 0 % (0-3) Basophils (%) (Auto) 0 % (0-3) Neutrophils # (Auto) 11.9 x10^3/uL (1.8-7.7) Lymphocytes # (Auto) 1.2 x10^3/uL (1.0-4.8) Monocytes # (Auto) 1.1 x10^3/uL (0.0-1.1) Eosinophils # (Auto) 0.0 x10^3/uL (0.0-0.7) Basophils # (Auto) 0.0 x10^3/uL (0.0-0.2) Sodium Level 136 mmol/L (136-145) Potassium Level 3.9 mmol/L (3.5-5.1) Chloride Level 102 mmol/L (98-107) Carbon Dioxide Level 29 mmol/L (21-32) Anion Gap 5 (6-14) Blood Urea Nitrogen 12 mg/dL (7-20) Creatinine 1.0 mg/dL (0.6-1.0) Estimated GFR (Cockcroft-Gault) 54.8 Glucose Level 111 mg/dL (70-99) Lactic Acid Level 1.2 mmol/L (0.4-2.0) Calcium Level 8.4 mg/dL (8.5-10.1) Procalcitonin < 0.10 ng/mL (0.00-0.10) SARS-CoV-2 Antigen (Rapid) Negative (NEGATIVE) Images: Images PROCEDURE: BREAST RIGHT EXAM: Right breast sonogram. HISTORY: 70-year-old female with a history of right breast cancer, status post lumpectomy performed 03/02/2021, presents with right breast pain and erythema. TECHNIQUE: Sonographic imaging of the right breast targeted to the site of reported concern was performed. COMPARISON: 03/02/2021. FINDINGS: There is a complex fluid collection within the right breast at 10:00 position 9 cm from the nipple measuring 6.1 x 5.5 x 2.9 cm. there is surrounding parenchymal edema. No solid lesion is seen. There is no suspicious axillary lymph node. IMPRESSION: 1. 6.1 cm complex fluid collection with surrounding parenchymal edema within the 10:00 position of the right breast at the site of concern. Given history of interval lumpectomy in this location, this is likely due to a postoperative seroma. Given new onset skin erythema and pain in this location, this may be a superinfected seroma/abscess with overlying cellulitis. 2. BI-RADS Category 3: Probably benign finding(s). Short term follow up with a right breast sonogram following interval therapy for suspected cellulitis/abscess is recommended to confirm resolution. Assessment/Plan Assessment/Plan Right-sided mastitis, likely abscess History of fibromyalgia History of hypertension History of breast carcinoma status post hormonal therapy and radiation in February 2021 Admit to hospitalist service for further management Surgery consult Continue empiric IV antibiotics [] for DVT prophylaxis [] GI prophylaxis ADA diet CODE STATUS [] Discussed with RN and SW Disposition [] DPOA: [] Justifications for Admission Other Justification LAKIA JACKSON MD Sep 01, 2021 13:13
[2021-09-01] MEDS ORDERED: DOCUSATE SODIUM 100 MG CAPSULE. PO PRN (13:15)
[2021-09-01] MEDS ORDERED: SENNOSIDES 8.6 MG TABLET PO PRN (13:15)
[2021-09-01] MEDS ORDERED: LORazepam 0.5 MG TABLET PO PRN (13:15)
[2021-09-01] MEDS ORDERED: PROCHLORPERAZINE 10 MG/2 ML VIAL. IV PRN (13:15)
[2021-09-01] MEDS ORDERED: MORPHINE SULFATE 2 MG/ML INJ. IV PRN (13:15)
[2021-09-01] MEDS ORDERED: ACETAMINOPHEN 325 MG TABLET. PO PRN (13:15)
[2021-09-01] MEDS ORDERED: HYDROcodone/APAP 5/325MG 1 TAB TABLET PO PRN (13:15)
[2021-09-01] MEDS ORDERED: DEXTROSE 50% 25 GM / 50ML DISP.SYRIN. IV PRN (13:15)
[2021-09-01] MEDS ORDERED: ZOLPIDEM 5 MG TABLET. PO PRN (13:15)
[2021-09-01] MEDS: VANCOMYCIN PER PHARMACY MC PRN (13:47)
--- NOTE | 2021-09-01 13:52 | NUR ---
Pharmacy Vancomycin Dosing Note S:Consulted to monitor and dose vancomycin started 09/01/21. O:BHUMIKA RAMON is a 70 year old F with Abscess Cellulitis . Height: 5 feet, 6 inches Weight: 104.0 kg [place] Body Weight: 59.30 Adjusted Body Weight: 77.18 Dosing Weight: Actual Other Antibiotics: LABS: Last BUN: Last Creatinine: 1.0 Creatinine Clearance: 64 mL/min Last WBC: 14.2 Last Procalcitonin: <0.1 Tmax (past 24 hours): 100.1 Microbiology: I/O: Drug Levels: Last level: on at Last dose given 09/01/21 at 1400 Vancomycin Dosing: Loading Dose: 2000 mg x1 Dosing Weight: Actual Target Trough: 10-20 A: Based on: WEIGH AND RENAL FUNCTION, VANCOMYCIN 2GM IV BOLUS (1GM IN ER/1GM AFTER PT ARRIVED UNIT. P: 1. Begin Vancomycin 1500 mg IV q12h 2. Follow up Trough level on 09/03/21 at 0130 3. Pharmacy will continue to monitor, follow and adjust therapy as needed. KAREEN CORBETT [facility], 09/01/21 [id number]
[2021-09-01] MEDS ORDERED: VANCOMYCIN 1 GM in IV NORMAL SALINE 250ML 250 ML IV ONE (14:00)
[2021-09-01] MEDS: ENOXAPARIN 40 MG/0.4 ML SYRINGE. SQ SCH (14:00)
[2021-09-01 15:00] VITALS: BP 115/52
[2021-09-01 19:00] VITALS: BP 122/50
[2021-09-01] MEDS: HYDROcodone/APAP 5/325MG 1 TAB TABLET PO PRN (21:08)
[2021-09-01] MEDS: MORPHINE SULFATE 2 MG/ML INJ. IVP PRN (22:55)
[2021-09-01 23:00] VITALS: BP 114/49
[2021-09-02 03:00] VITALS: BP 115/50
[2021-09-02] MEDS: VANCOMYCIN 1.5 GM in IV NORMAL SALINE 500ML BAG 500 ML IV SCH ×2 (03:14→13:47)
[2021-09-02] MEDS: MORPHINE SULFATE 2 MG/ML INJ. IVP PRN (03:20)
[2021-09-02 07:00] VITALS: BP 121/44
[2021-09-02 07:28] LABS: BASO # 0.1 x10^3/uL (0.0-0.2); BASO % 1 % (0-3); EOS % 0 % (0-3); HEMATOCRIT 33.5 % (36.0-47.0); HEMOGLOBIN 10.7 g/dL (12.0-15.5); LYMPH # 1.6 x10^3/uL (1.0-4.8); LYMPH % 14 % (24-48); MEAN CORPUSCULAR HEMOGLOBIN 30 pg (25-35); MEAN CORPUSCULAR HGB CONC 32 g/dL (31-37); MEAN CORPUSCULAR VOLUME 93 fL (79-100); MONO # 0.9 x10^3/uL (0.0-1.1); MONO % 9 % (0-9); NEUT # 8.4 x10^3/uL (1.8-7.7); NEUT % 76 % (31-73); PLATELET COUNT 140 x10^3/uL (140-400); RED BLOOD COUNT 3.58 x10^6/uL (3.50-5.40); RED CELL DISTRIBUTION WIDTH 13.5 % (11.5-14.5)
[2021-09-02 08:00] LABS: CALCIUM 7.7 mg/dL (8.5-10.1); CREATININE 1.1 mg/dL (0.6-1.0); GFR 49.1; PHOSPHORUS 2.7 mg/dL (2.6-4.7); POTASSIUM 3.7 mmol/L (3.5-5.1)
[2021-09-02] MEDS: IV NORMAL SALINE 1000ML BAG 1,000 ML IV SCH (09:50)
[2021-09-02] MEDS: HYDROcodone/APAP 5/325MG 1 TAB TABLET PO PRN ×2 (09:51→22:21)
[2021-09-02 11:00] VITALS: BP 105/44
--- NOTE | 2021-09-02 12:27 | NUR ---
Per Dr. Brantley, pt can have regular diet. Meal tray ordered.
--- NOTE | 2021-09-02 12:45 | PDOC2 ---
CONSULT Date of Consult Date of Consult DATE: 09/02/21 TIME: 12:42 Reason for Consult Reason for Consult: Right breast pain Referring Physician Referring Physician: Mani Identification/Chief Complaint Chief Complaint Right breast pain Source Source: Chart review, Patient History of Present Illness Reason for Visit: Patient is a 70-year-old female who had a right breast lumpectomy February 2021 with radiation and chemotherapy is currently on oral chemotherapy. Last 24 hours she developed redness swelling and pain in the right breast. Came to emergency depa rtment further evaluation ultrasound of the area showing fluid collection with some edema Past Medical History Cardiovascular: HTN Past Surgical History Past Surgical History: Total hip replacement Family History Family History: Heart Disease Social History ALCOHOL: none Drugs: None Lives: with Family Domestic Violence: Neg Current Problem List Problem List Problems Medical Problems: (1) Abscess of right breast Status: Acute (2) History of breast cancer Status: Acute Current Medications Current Medications Current Medications Acetaminophen (Tylenol) 1,000 mg 1X ONCE PO Last administered on 09/01/21at 09:58; Start 09/01/21 at 09:30; Stop 09/01/21 at 09:31; Status DC Sodium Chloride 1,000 ml @ 1,000 mls/hr 1X ONCE IV Last administered on 09/01/21at 10:26; Start 09/01/21 at 09:30; Stop 09/01/21 at 10:29; Status DC Morphine Sulfate (Morphine Sulfate) 4 mg 1X ONCE IVP Last administered on 09/01/21at 09:59; Start 09/01/21 at 09:30; Stop 09/01/21 at 09:31; Status DC Ondansetron HCl (Zofran) 4 mg 1X ONCE IVP Last administered on 09/01/21at 09:58; Start 09/01/21 at 09:30; Stop 09/01/21 at 09:31; Status DC Vancomycin HCl 250 ml @ 250 mls/hr 1X ONCE IV Last administered on 09/01/21at 11:57; Start 09/01/21 at 10:30; Stop 09/01/21 at 11:29; Status DC Ondansetron HCl (Zofran) 4 mg PRN Q8HRS PRN IVP NAUSEA/VOMITING; Start 09/01/21 at 11:00; Stop 09/02/21 at 10:59; Status DC Morphine Sulfate (Morphine Sulfate) 4 mg PRN Q2HRS PRN IVP PAIN; Start 09/01/21 at 11:00; Stop 09/02/21 at 10:59; Status DC Sodium Chloride 1,000 ml @ 75 mls/hr 1X ONCE IV ; Start 09/01/21 at 11:00; Stop 09/02/21 at 00:20; Status DC Hydromorphone HCl (Dilaudid) 0.5 mg 1X ONCE IVP Last administered on 09/01/21at 11:56; Start 09/01/21 at 11:30; Stop 09/01/21 at 11:31; Status DC Vancomycin HCl (Vanco Per Pharmacy) 1 each PRN DAILY PRN MC SEE COMMENTS Last administered on 09/01/21at 13:47; Start 09/01/21 at 13:15 Sennosides (Senna) 17.2 mg PRN BID PRN PO CONSTIPATION; Start 09/01/21 at 13:15 Docusate Sodium (Colace) 100 mg PRN DAILY PRN PO HARD STOOLS; Start 09/01/21 at 13:15 Ondansetron HCl (Zofran) 4 mg PRN Q6HRS PRN IVP NAUSEA/VOMITING, 1ST CHOICE; Start 09/01/21 at 13:15 Dextrose (Dextrose 50%-Water Syringe) 12.5 gm PRN Q15MIN PRN IV SEE COMMENTS; Start 09/01/21 at 13:15 Sodium Chloride 1,000 ml @ 100 mls/hr Q10H IV Last administered on 09/02/21at 09:50; Start 09/01/21 at 13:15 Acetaminophen (Tylenol) 650 mg PRN Q4HRS PRN PO TEMP OVER 100.4F OR MILD PAIN; Start 09/01/21 at 13:15 Lorazepam (Ativan) 0.5 mg PRN Q6HRS PRN PO ANXIETY / AGITATION; Start 09/01/21 at 13:15 Lorazepam (Ativan Inj) 0.25 mg PRN Q4HRS PRN IV ANXIETY / AGITATION; Start 09/01/21 at 13:15 Enoxaparin Sodium (Lovenox 40mg Syringe) 40 mg Q24H SQ ; Start 09/01/21 at 14:00 Acetaminophen/ Hydrocodone Bitart (Lortab 5/325) 1 tab PRN Q4HRS PRN PO MILD PAIN 1-3, 2ND CHOICE; Start 09/01/21 at 13:15 Acetaminophen/ Hydrocodone Bitart (Lortab 5/325) 2 tab PRN Q4HRS PRN PO MODERATE PAIN, SEVERE PAIN Last administered on 09/02/21at 09:51; Start 09/01/21 at 13:15 Morphine Sulfate (Morphine Sulfate) 1 mg PRN Q1HR PRN IV MODERATE TO SEVERE PAIN; Start 09/01/21 at 13:15 Morphine Sulfate (Morphine Sulfate) 2 mg PRN Q2HR PRN IVP SEVERE PAIN 7-10 Last administered on 09/02/21at 03:20; Start 09/01/21 at 13:15; Stop 09/02/21 at 13:14 Prochlorperazine Edisylate (Compazine) 10 mg PRN Q6HRS PRN IV NAUSEA/VOMITING, 2ND CHOICE; Start 09/01/21 at 13:15 Zolpidem Tartrate (Ambien) 2.5 mg PRN QHS PRN PO INSOMNIA; Start 09/01/21 at 1 3:15 Vancomycin HCl 1 gm/Sodium Chloride 250 ml @ 250 mls/hr 1X ONCE IV Last administered on 09/01/21at 14:00; Start 09/01/21 at 14:00; Stop 09/01/21 at 14:59; Status DC Vancomycin HCl 1.5 gm/Sodium Chloride 500 ml @ 250 mls/hr Q12H IV Last adminis tered on 09/02/21at 03:14; Start 09/02/21 at 02:00 Vancomycin HCl (Vancomycin Trough Level) 1 each 1X ONCE MC ; Start 09/03/21 at 01:30; Stop 09/03/21 at 01:31 Active Scripts Active Hydrocodone-Acetamin 5-325 mg (Hydrocodone/Acetaminophen) 1 Each Tablet 1-2 Each PO Q6HRS Reported Cymbalta (Duloxetine Hcl) 60 Mg Capsule.dr 1 Cap PO DAILY [vitamin d] 2,000 Unit PO DAILY Atorvastatin Calcium 20 Mg Tablet 20 Mg PO HS Latanoprost 2.5 Ml Drops 1 Drop EACHEYE QHS Ventolin Hfa (Albuterol Sulfate) 8 Gm Hfa.aer.ad 1 Gm IH QIDPRN PRN Allergies Allergies: Coded Allergies: ibuprofen (Unverified Allergy, Severe, Anaphylaxis, 03/02/21) naproxen (Verified Allergy, Severe, 03/02/21) throat swells Penicillins (Unverified Allergy, Intermediate, hives, 03/02/21) codeine (Verified Allergy, Intermediate, Hives, 03/02/21) latex (Unverified Allergy, Intermediate, hives, 03/02/21) tramadol (Verified Allergy, Intermediate, Rash, 02/27/21) ROS Breast: Other (Pain and swelling right breast) Physical Exam General: Alert, Oriented X3, Cooperative, mild distress HEENT: Atraumatic, PERRLA, EOMI Lungs: Clear to auscultation, Normal air movement Heart: Regular rate, No murmurs Abdomen: Normal bowel sounds, Soft, No tenderness Extremities: No edema Skin: Other (Right breast, area shows some radiation changes with darkening of the skin color she does have some erythema especially on the posterior aspect of the breast tender to palpation) Vitals VITALS Vital Signs Date Time Temp Pulse Resp B/P (MAP) Pulse Ox O2 Delivery O2 Flow Rate FiO2 09/02/21 11:00 99.3 80 20 105/44 (64) 96 99.3 09/02/21 07:43 Nasal Cannula 2.0 Labs Labs Laboratory Tests Test 09/01/21 09:55 09/01/21 10:30 09/01/21 12:03 09/02/21 07:00 White Blood Count 14.2 x10^3/uL (4.0-11.0) Red Blood Count 4.11 x10^6/uL (3.50-5.40) Hemoglobin 12.4 g/dL (12.0-15.5) Hematocrit 38.0 % (36.0-47.0) Mean Corpuscular Volume 93 fL (79-100) Mean Corpuscular Hemoglobin 30 pg (25-35) Mean Corpuscular Hemoglobin Concent 33 g/dL (31-37) Red Cell Distribution Width 13.7 % (11.5-14.5) Platelet Count 167 x10^3/uL (140-400) Neutrophils (%) (Auto) 84 % (31-73) Lymphocytes (%) (Auto) 8 % (24-48) Monocytes (%) (Auto) 8 % (0-9) Eosinophils (%) (Auto) 0 % (0-3) Basophils (%) (Auto) 0 % (0-3) Neutrophils # (Auto) 11.9 x10^3/uL (1.8-7.7) Lymphocytes # (Auto) 1.2 x10^3/uL (1.0-4.8) Monocytes # (Auto) 1.1 x10^3/uL (0.0-1.1) Eosinophils # (Auto) 0.0 x10^3/uL (0.0-0.7) Basophils # (Auto) 0.0 x10^3/uL (0.0-0.2) Sodium Level 136 mmol/L (136-145) 139 mmol/L (136-145) Potassium Level 3.9 mmol/L (3.5-5.1) 3.7 mmol/L (3.5-5.1) Chloride Level 102 mmol/L (98-107) 106 mmol/L (98-107) Carbon Dioxide Level 29 mmol/L (21-32) 27 mmol/L (21-32) Anion Gap 5 (6-14) 6 (6-14) Blood Urea Nitrogen 12 mg/dL (7-20) 14 mg/dL (7-20) Creatinine 1.0 mg/dL (0.6-1.0) 1.1 mg/dL (0.6-1.0) Estimated GFR (Cockcroft-Gault) 54.8 49.1 Glucose Level 111 mg/dL (70-99) 111 mg/dL (70-99) Lactic Acid Level 1.2 mmol/L (0.4-2.0) Calcium Level 8.4 mg/dL (8.5-10.1) 7.7 mg/dL (8.5-10.1) Procalcitonin < 0.10 ng/mL (0.00-0.10) SARS-CoV-2 RNA (NASRIN) Negative (Negative) SARS-CoV-2 Antigen (Rapid) Negative (NEGATIVE) Phosphorus Level 2.7 mg/dL (2.6-4.7) Magnesium Level 2.0 mg/dL (1.8-2.4) Test 09/02/21 07:05 White Blood Count 11.0 x10^3/uL (4.0-11.0) Red Blood Count 3.58 x10^6/uL (3.50-5.40) Hemoglobin 10.7 g/dL (12.0-15.5) Hematocrit 33.5 % (36.0-47.0) Mean Corpuscular Volume 93 fL (79-100) Mean Corpuscular Hemoglobin 30 pg (25-35) Mean Corpuscular Hemoglobin Concent 32 g/dL (31-37) Red Cell Distribution Width 13.5 % (11.5-14.5) Platelet Count 140 x10^3/uL (140-400) Neutrophils (%) (Auto) 76 % (31-73) Lymphocytes (%) (Auto) 14 % (24-48) Monocytes (%) (Auto) 9 % (0-9) Eosinophils (%) (Auto) 0 % (0-3) Basophils (%) (Auto) 1 % (0-3) Neutrophils # (Auto) 8.4 x10^3/uL (1.8-7.7) Lymphocytes # (Auto) 1.6 x10^3/uL (1.0-4.8) Monocytes # (Auto) 0.9 x10^3/uL (0.0-1.1) Eosinophils # (Auto) 0.0 x10^3/uL (0.0-0.7) Basophils # (Auto) 0.1 x10^3/uL (0.0-0.2) Laboratory Tests Test 09/02/21 07:00 09/02/21 07:05 Sodium Level 139 mmol/L (136-145) Potassium Level 3.7 mmol/L (3.5-5.1) Chloride Level 106 mmol/L (98-107) Carbon Dioxide Level 27 mmol/L (21-32) Anion Gap 6 (6-14) Blood Urea Nitrogen 14 mg/dL (7-20) Creatinine 1.1 mg/dL (0.6-1.0) Estimated GFR (Cockcroft-Gault) 49.1 Glucose Level 111 mg/dL (70-99) Calcium Level 7.7 mg/dL (8.5-10.1) Phosphorus Level 2.7 mg/dL (2.6-4.7) Magnesium Level 2.0 mg/dL (1.8-2.4) White Blood Count 11.0 x10^3/uL (4.0-11.0) Red Blood Count 3.58 x10^6/uL (3.50-5.40) Hemoglobin 10.7 g/dL (12.0-15.5) Hematocrit 33.5 % (36.0-47.0) Mean Corpuscular Volume 93 fL (79-100) Mean Corpuscular Hemoglobin 30 pg (25-35) Mean Corpuscular Hemoglobin Concent 32 g/dL (31-37) Red Cell Distribution Width 13.5 % (11.5-14.5) Platelet Count 140 x10^3/uL (140-400) Neutrophils (%) (Auto) 76 % (31-73) Lymphocytes (%) (Auto) 14 % (24-48) Monocytes (%) (Auto) 9 % (0-9) Eosinophils (%) (Auto) 0 % (0-3) Basophils (%) (Auto) 1 % (0-3) Neutrophils # (Auto) 8.4 x10^3/uL (1.8-7.7) Lymphocytes # (Auto) 1.6 x10^3/uL (1.0-4.8) Monocytes # (Auto) 0.9 x10^3/uL (0.0-1.1) Eosinophils # (Auto) 0.0 x10^3/uL (0.0-0.7) Basophils # (Auto) 0.1 x10^3/uL (0.0-0.2) Assessment/Plan Assessment/Plan Right breast cellulitis with fluid collection likely seroma. In face of having recent radiation open incision and drainage could be contraindicated at this point would try to treat with IV antibiotics may need aspiration at some point UMESH ALBRIGHT MD Sep 02, 2021 12:45
--- NOTE | 2021-09-02 12:46 | PDOC ---
[employer] PROGRESS NOTE Date of Service DOS: DATE: 09/02/21 TIME: 12:34 Chief Complaint Chief Complaint Right-sided mastitis, likely abscess History of fibromyalgia History of hypertension History of breast carcinoma status post hormonal therapy and radiation in February 2021 History of Present Illness History of Present Illness 09/02/2021 Patient seen and examined. Discussed with RN. Chart Reviewed. Patient awake and NAD. Patient's right breast looked mildly swollen and mildly erythematous compared to the left breast. Vancomycin hanging. Vitals/I&O Vitals/I&O: Vital Signs Date Time Temp Pulse Resp B/P (MAP) Pulse Ox O2 Delivery O2 Flow Rate FiO2 09/02/21 11:00 99.3 80 20 105/44 (64) 96 99.3 09/02/21 07:43 Nasal Cannula 2.0 I & O 09/01/21 09/01/21 09/02/21 15:00 23:00 07:00 Intake Total 250 ml 120 ml Output Total 500 ml Balance -500 ml 250 ml 120 ml Physical Exam General: Alert, No acute distress Heart: Regular rate Lungs: Clear Abdomen: Normal bowel sounds Extremities: No cyanosis Skin: Other (Right sided breast pain, mildly erythematous) Labs Labs: Laboratory Tests Test 09/02/21 07:00 09/02/21 07:05 Sodium Level 139 mmol/L (136-145) Potassium Level 3.7 mmol/L (3.5-5.1) Chloride Level 106 mmol/L (98-107) Carbon Dioxide Level 27 mmol/L (21-32) Anion Gap 6 (6-14) Blood Urea Nitrogen 14 mg/dL (7-20) Creatinine 1.1 mg/dL (0.6-1.0) Estimated GFR (Cockcroft-Gault) 49.1 Glucose Level 111 mg/dL (70-99) Calcium Level 7.7 mg/dL (8.5-10.1) Phosphorus Level 2.7 mg/dL (2.6-4.7) Magnesium Level 2.0 mg/dL (1.8-2.4) White Blood Count 11.0 x10^3/uL (4.0-11.0) Red Blood Count 3.58 x10^6/uL (3.50-5.40) Hemoglobin 10.7 g/dL (12.0-15.5) Hematocrit 33.5 % (36.0-47.0) Mean Corpuscular Volume 93 fL (79-100) Mean Corpuscular Hemoglobin 30 pg (25-35) Mean Corpuscular Hemoglobin Concent 32 g/dL (31-37) Red Cell Distribution Width 13.5 % (11.5-14.5) Platelet Count 140 x10^3/uL (140-400) Neutrophils (%) (Auto) 76 % (31-73) Lymphocytes (%) (Auto) 14 % (24-48) Monocytes (%) (Auto) 9 % (0-9) Eosinophils (%) (Auto) 0 % (0-3) Basophils (%) (Auto) 1 % (0-3) Neutrophils # (Auto) 8.4 x10^3/uL (1.8-7.7) Lymphocytes # (Auto) 1.6 x10^3/uL (1.0-4.8) Monocytes # (Auto) 0.9 x10^3/uL (0.0-1.1) Eosinophils # (Auto) 0.0 x10^3/uL (0.0-0.7) Basophils # (Auto) 0.1 x10^3/uL (0.0-0.2) Assessment and Plan Assessmemt and Plan Problems Medical Problems: (1) Abscess of right breast Status: Acute (2) History of breast cancer Status: Acute Assessment: Right-sided mastitis, likely abscess History of fibromyalgia History of hypertension History of breast carcinoma status post hormonal therapy and radiation in February 2021 Plan: Awaiting surgery input Continue IV antibiotics Trend labs Home meds DVT prophylaxis GI prophylaxis Full Code Comment Review of Relevant I have reviewed the following items mariela (where applicable) has been applied. Medications: Current Medications Medications (Trade) Dose Ordered Sig/Tiesha Route PRN Reason Start Time Stop Time Status Last Admin Dose Admin Vancomycin HCl (Vanco Per Pharmacy) 1 each PRN DAILY PRN MC SEE COMMENTS 09/01/21 13:15 09/01/21 13:47 Sodium Chloride 1,000 ml @ 100 mls/hr Q10H IV 09/01/21 13:15 09/02/21 09:50 Acetaminophen/ Hydrocodone Bitart (Lortab 5/325) 2 tab PRN Q4HRS PRN PO MODERATE PAIN, SEVERE PAIN 09/01/21 13:15 09/02/21 09:51 Morphine Sulfate (Morphine Sulfate) 2 mg PRN Q2HR PRN IVP SEVERE PAIN 7-10 09/01/21 13:15 09/02/21 13:14 09/02/21 03:20 Vancomycin HCl 1 gm/Sodium Chloride 250 ml @ 250 mls/hr 1X ONCE IV 09/01/21 14:00 09/01/21 14:59 DC 09/01/21 14:00 Vancomycin HCl 1.5 gm/Sodium Chloride 500 ml @ 250 mls/hr Q12H IV 09/02/21 02:00 09/02/21 03:14 Justifications for Admission Other Justification Breast infection JO-ANN ANDERS III DO Sep 02, 2021 12:46
[2021-09-02] MEDS: ENOXAPARIN 40 MG/0.4 ML SYRINGE. SQ SCH (13:29)
--- NOTE | 2021-09-02 13:31 | NUR ---
SS following for discharge planning. SS reviewed pt chart and discussed with pt RN. Pt is from home with spouse and is currently requiring oxygen at two liters nasal canula PRN. COVID19 negative. Pt on IV Vancomycin. Surgery consulted. No surgical plans at this time. PO diet. SS will continue to follow for discharge planning.
[2021-09-02 15:00] VITALS: BP 110/56
[2021-09-02] MEDS: VANCOMYCIN PER PHARMACY MC PRN (17:13)
[2021-09-02 19:00] VITALS: BP 158/58
[2021-09-02] MEDS ORDERED: ZOLP5TAB5 PO (21:30)
[2021-09-02] MEDS ORDERED: TAMO20TA PO (21:30)
[2021-09-02] MEDS ORDERED: LATANOPROST 0.005% OPHTH SOLUTION 2.5ML BOTTLE. OU SCH (22:00)
[2021-09-02] MEDS ORDERED: ALBUTEROL SULFATE 2.5 MG/3 ML NEBU. NEB PRN (22:00)
[2021-09-02] MEDS: ATORVASTATIN CALCIUM 20 MG TABLET PO SCH (22:21)
[2021-09-02] MEDS: LATANOPROST OU SCH (22:24)
[2021-09-02] MEDS ORDERED: LATANOPROST OU SCH (22:30)
[2021-09-02 23:07] VITALS: BP 115/46
[2021-09-03] MEDS: IV NORMAL SALINE 1000ML BAG 1,000 ML IV SCH ×3 (01:33→13:48)
[2021-09-03 01:36] LABS: BASO # 0.1 x10^3/uL (0.0-0.2); BASO % 1 % (0-3); EOS # 0.1 x10^3/uL (0.0-0.7); EOS % 1 % (0-3); LYMPH % 12 % (24-48); MEAN CORPUSCULAR HEMOGLOBIN 30 pg (25-35); MEAN CORPUSCULAR HGB CONC 32 g/dL (31-37); MEAN CORPUSCULAR VOLUME 93 fL (79-100); MONO # 0.7 x10^3/uL (0.0-1.1); MONO % 8 % (0-9); NEUT % 79 % (31-73); PLATELET COUNT 124 x10^3/uL (140-400); RED BLOOD COUNT 3.33 x10^6/uL (3.50-5.40); RED CELL DISTRIBUTION WIDTH 13.2 % (11.5-14.5); WHITE BLOOD COUNT 8.9 x10^3/uL (4.0-11.0)
[2021-09-03 02:02] LABS: CALCIUM 7.7 mg/dL (8.5-10.1); CREATININE 0.8 mg/dL (0.6-1.0); GFR 70.9; MAGNESIUM 1.9 mg/dL (1.8-2.4); POTASSIUM 3.5 mmol/L (3.5-5.1)
[2021-09-03 02:08] LABS: VANC TR 17.9 mcg/mL (10.0-20.0)
[2021-09-03] MEDS: VANCOMYCIN 1.5 GM in IV NORMAL SALINE 500ML BAG 500 ML IV SCH ×2 (02:47→13:50)
[2021-09-03] MEDS: HYDROcodone/APAP 5/325MG 1 TAB TABLET PO PRN ×3 (02:48→20:37)
[2021-09-03 03:08] VITALS: BP 110/42
[2021-09-03] MEDS: VANCOMYCIN PER PHARMACY MC PRN ×2 (03:35→14:21)
--- NOTE | 2021-09-03 03:35 | NUR ---
Pharmacy Vancomycin Dosing Note S:Consulted to monitor and dose vancomycin started 09/01/21. O:BHUMIKA RAMON is a 70 year old F with Abscess Cellulitis . Height: 5 feet, 6 inches Weight: 104.0 kg [place] Body Weight: 59.30 Adjusted Body Weight: 77.18 Dosing Weight: Actual Other Antibiotics: LABS: Last BUN: 14 Last Creatinine: 1.1 Creatinine Clearance: 58 mL/min Last WBC: 11 Last Procalcitonin: <0.1 Tmax (past 24 hours): 100.2 Microbiology: BLOOD: NGTD (1 DAY) I/O: 370/500 Drug Levels: Last Trough level: 17.9 on 09/03/21 at 0130 Last dose given 09/02/21 at 1347 Vancomycin Dosing: Loading Dose: 2000 mg x1 Dosing Weight: Actual Target Trough: 10-20 A: Based on: THERAPEUTIC LEVEL, P: 1. CONTINUE Vancomycin 1500 mg IV q12h 2. Follow up Trough level IN ~5 DAYS WITH STABLE RENAL FUNCTION IF DOSING CONTINUES. 3. Pharmacy will continue to monitor, follow and adjust therapy as needed. JEANNE BOLANOS Monica, 09/03/21 [id number]
[2021-09-03 07:00] VITALS: BP 116/45
--- NOTE | 2021-09-03 08:21 | PDOC ---
[employer] PROGRESS NOTE Date of Service DOS: DATE: 09/03/21 TIME: 08:18 Chief Complaint Chief Complaint Right-sided mastitis, likely abscess vs seroma History of fibromyalgia History of hypertension History of breast carcinoma status post hormonal therapy and radiation in February 2021 History of Present Illness History of Present Illness 09/02/2021 Patient seen and examined. Discussed with RN. Chart Reviewed. Patient awake and NAD. Patient's right breast looked mildly swollen and mildly erythematous compared to the left breast. Vancomycin hanging. 09/03: Afebrile overnight. D/w IR and area can be drained, recommend under mammography. She has low appetite and is a little anxious, also with some lower back pain, chest wall pain and still with swollen, red right breast. Vitals/I&O Vitals/I&O: Vital Signs Date Time Temp Pulse Resp B/P (MAP) Pulse Ox O2 Delivery O2 Flow Rate FiO2 09/03/21 07:00 97.7 83 20 116/45 (68) 90 Nasal Cannula 97.7 09/02/21 07:43 2.0 I & O 09/02/21 09/02/21 09/03/21 15:00 23:00 07:00 Intake Total 1000 ml 500 ml 1500 ml Balance 1000 ml 500 ml 1500 ml Physical Exam General: Alert, No acute distress Heart: Regular rate Lungs: Clear Abdomen: Normal bowel sounds Extremities: No cyanosis Skin: Other (Right sided breast pain, mildly erythematous) Labs Labs: Laboratory Tests Test 09/03/21 01:30 White Blood Count 8.9 x10^3/uL (4.0-11.0) Red Blood Count 3.33 x10^6/uL (3.50-5.40) Hemoglobin 10.0 g/dL (12.0-15.5) Hematocrit 31.0 % (36.0-47.0) Mean Corpuscular Volume 93 fL (79-100) Mean Corpuscular Hemoglobin 30 pg (25-35) Mean Corpuscular Hemoglobin Concent 32 g/dL (31-37) Red Cell Distribution Width 13.2 % (11.5-14.5) Platelet Count 124 x10^3/uL (140-400) Neutrophils (%) (Auto) 79 % (31-73) Lymphocytes (%) (Auto) 12 % (24-48) Monocytes (%) (Auto) 8 % (0-9) Eosinophils (%) (Auto) 1 % (0-3) Basophils (%) (Auto) 1 % (0-3) Neutrophils # (Auto) 7.0 x10^3/uL (1.8-7.7) Lymphocytes # (Auto) 1.0 x10^3/uL (1.0-4.8) Monocytes # (Auto) 0.7 x10^3/uL (0.0-1.1) Eosinophils # (Auto) 0.1 x10^3/uL (0.0-0.7) Basophils # (Auto) 0.1 x10^3/uL (0.0-0.2) Sodium Level 137 mmol/L (136-145) Potassium Level 3.5 mmol/L (3.5-5.1) Chloride Level 104 mmol/L (98-107) Carbon Dioxide Level 26 mmol/L (21-32) Anion Gap 7 (6-14) Blood Urea Nitrogen 13 mg/dL (7-20) Creatinine 0.8 mg/dL (0.6-1.0) Estimated GFR (Cockcroft-Gault) 70.9 Glucose Level 119 mg/dL (70-99) Calcium Level 7.7 mg/dL (8.5-10.1) Magnesium Level 1.9 mg/dL (1.8-2.4) Vancomycin Level Trough 17.9 mcg/mL (10.0-20.0) Vancomycin Last Dose Date Vancomycin Last Dose Time Assessment and Plan Assessmemt and Plan Problems Medical Problems: (1) Abscess of right breast Status: Acute (2) History of breast cancer Status: Acute Comment Review of Relevant I have reviewed the following items mariela (where applicable) has been applied. Medications: Current Medications Medications (Trade) Dose Ordered Sig/Tiesha Route PRN Reason Start Time Stop Time Status Last Admin Dose Admin Vancomycin HCl (Vancomycin Trough Level) 1 each 1X ONCE MC 09/03/21 01:30 09/03/21 01:31 DC 09/03/21 01:30 Atorvastatin Calcium (Lipitor) 20 mg HS PO 09/02/21 22:00 09/02/21 22:21 Non-Formulary Medication (Latanoprost) 1 ea QHS OU 09/02/21 22:30 09/02/21 22:24 Justifications for Admission Other Justification Breast infection SALAZAR SANTANA MD Sep 03, 2021 08:21
[2021-09-03] MEDS ORDERED: DULoxetine HCL 30 MG CAPSULE.DR PO SCH ×2 (09:00→12:00)
--- NOTE | 2021-09-03 09:12 | PDOC ---
[employer]INICAL PROFESSOR 09/03/21 0912: SURGICAL PROGRESS NOTE DATE: 09/03/21 TIME: 09:11 Subjective a little better d/w IPC Vital Signs Vital Signs Date Time Temp Pulse Resp B/P (MAP) Pulse Ox O2 Delivery O2 Flow Rate FiO2 09/03/21 07:00 97.7 83 20 116/45 (68) 90 Nasal Cannula 97.7 09/02/21 07:43 2.0 I&O Intake and Output 09/03/21 07:00 Intake Total 3000 ml Balance 3000 ml Intake Oral 0 ml IV Total 3000 ml # Voids 2 General: Alert, Cooperative Skin: Other (erythema to breast, tenderness ) Labs Laboratory Tests Test 09/01/21 09:55 09/01/21 10:30 09/01/21 12:03 09/02/21 07:00 White Blood Count 14.2 x10^3/uL (4.0-11.0) Red Blood Count 4.11 x10^6/uL (3.50-5.40) Hemoglobin 12.4 g/dL (12.0-15.5) Hematocrit 38.0 % (36.0-47.0) Mean Corpuscular Volume 93 fL (79-100) Mean Corpuscular Hemoglobin 30 pg (25-35) Mean Corpuscular Hemoglobin Concent 33 g/dL (31-37) Red Cell Distribution Width 13.7 % (11.5-14.5) Platelet Count 167 x10^3/uL (140-400) Neutrophils (%) (Auto) 84 % (31-73) Lymphocytes (%) (Auto) 8 % (24-48) Monocytes (%) (Auto) 8 % (0-9) Eosinophils (%) (Auto) 0 % (0-3) Basophils (%) (Auto) 0 % (0-3) Neutrophils # (Auto) 11.9 x10^3/uL (1.8-7.7) Lymphocytes # (Auto) 1.2 x10^3/uL (1.0-4.8) Monocytes # (Auto) 1.1 x10^3/uL (0.0-1.1) Eosinophils # (Auto) 0.0 x10^3/uL (0.0-0.7) Basophils # (Auto) 0.0 x10^3/uL (0.0-0.2) Sodium Level 136 mmol/L (136-145) 139 mmol/L (136-145) Potassium Level 3.9 mmol/L (3.5-5.1) 3.7 mmol/L (3.5-5.1) Chloride Level 102 mmol/L (98-107) 106 mmol/L (98-107) Carbon Dioxide Level 29 mmol/L (21-32) 27 mmol/L (21-32) Anion Gap 5 (6-14) 6 (6-14) Blood Urea Nitrogen 12 mg/dL (7-20) 14 mg/dL (7-20) Creatinine 1.0 mg/dL (0.6-1.0) 1.1 mg/dL (0.6-1.0) Estimated GFR (Cockcroft-Gault) 54.8 49.1 Glucose Level 111 mg/dL (70-99) 111 mg/dL (70-99) Lactic Acid Level 1.2 mmol/L (0.4-2.0) Calcium Level 8.4 mg/dL (8.5-10.1) 7.7 mg/dL (8.5-10.1) Procalcitonin < 0.10 ng/mL (0.00-0.10) SARS-CoV-2 RNA (NASRIN) Negative (Negative) SARS-CoV-2 Antigen (Rapid) Negative (NEGATIVE) Phosphorus Level 2.7 mg/dL (2.6-4.7) Magnesium Level 2.0 mg/dL (1.8-2.4) Test 09/02/21 07:05 09/03/21 01:30 White Blood Count 11.0 x10^3/uL (4.0-11.0) 8.9 x10^3/uL (4.0-11.0) Red Blood Count 3.58 x10^6/uL (3.50-5.40) 3.33 x10^6/uL (3.50-5.40) Hemoglobin 10.7 g/dL (12.0-15.5) 10.0 g/dL (12.0-15.5) Hematocrit 33.5 % (36.0-47.0) 31.0 % (36.0-47.0) Mean Corpuscular Volume 93 fL (79-100) 93 fL (79-100) Mean Corpuscular Hemoglobin 30 pg (25-35) 30 pg (25-35) Mean Corpuscular Hemoglobin Concent 32 g/dL (31-37) 32 g/dL (31-37) Red Cell Distribution Width 13.5 % (11.5-14.5) 13.2 % (11.5-14.5) Platelet Count 140 x10^3/uL (140-400) 124 x10^3/uL (140-400) Neutrophils (%) (Auto) 76 % (31-73) 79 % (31-73) Lymphocytes (%) (Auto) 14 % (24-48) 12 % (24-48) Monocytes (%) (Auto) 9 % (0-9) 8 % (0-9) Eosinophils (%) (Auto) 0 % (0-3) 1 % (0-3) Basophils (%) (Auto) 1 % (0-3) 1 % (0-3) Neutrophils # (Auto) 8.4 x10^3/uL (1.8-7.7) 7.0 x10^3/uL (1.8-7.7) Lymphocytes # (Auto) 1.6 x10^3/uL (1.0-4.8) 1.0 x10^3/uL (1.0-4.8) Monocytes # (Auto) 0.9 x10^3/uL (0.0-1.1) 0.7 x10^3/uL (0.0-1.1) Eosinophils # (Auto) 0.0 x10^3/uL (0.0-0.7) 0.1 x10^3/uL (0.0-0.7) Basophils # (Auto) 0.1 x10^3/uL (0.0-0.2) 0.1 x10^3/uL (0.0-0.2) Sodium Level 137 mmol/L (136-145) Potassium Level 3.5 mmol/L (3.5-5.1) Chloride Level 104 mmol/L (98-107) Carbon Dioxide Level 26 mmol/L (21-32) Anion Gap 7 (6-14) Blood Urea Nitrogen 13 mg/dL (7-20) Creatinine 0.8 mg/dL (0.6-1.0) Estimated GFR (Cockcroft-Gault) 70.9 Glucose Level 119 mg/dL (70-99) Calcium Level 7.7 mg/dL (8.5-10.1) Magnesium Level 1.9 mg/dL (1.8-2.4) Vancomycin Level Trough 17.9 mcg/mL (10.0-20.0) Vancomycin Last Dose Date Vancomycin Last Dose Time Laboratory Tests Test 09/03/21 01:30 White Blood Count 8.9 x10^3/uL (4.0-11.0) Red Blood Count 3.33 x10^6/uL (3.50-5.40) Hemoglobin 10.0 g/dL (12.0-15.5) Hematocrit 31.0 % (36.0-47.0) Mean Corpuscular Volume 93 fL (79-100) Mean Corpuscular Hemoglobin 30 pg (25-35) Mean Corpuscular Hemoglobin Concent 32 g/dL (31-37) Red Cell Distribution Width 13.2 % (11.5-14.5) Platelet Count 124 x10^3/uL (140-400) Neutrophils (%) (Auto) 79 % (31-73) Lymphocytes (%) (Auto) 12 % (24-48) Monocytes (%) (Auto) 8 % (0-9) Eosinophils (%) (Auto) 1 % (0-3) Basophils (%) (Auto) 1 % (0-3) Neutrophils # (Auto) 7.0 x10^3/uL (1.8-7.7) Lymphocytes # (Auto) 1.0 x10^3/uL (1.0-4.8) Monocytes # (Auto) 0.7 x10^3/uL (0.0-1.1) Eosinophils # (Auto) 0.1 x10^3/uL (0.0-0.7) Basophils # (Auto) 0.1 x10^3/uL (0.0-0.2) Sodium Level 137 mmol/L (136-145) Potassium Level 3.5 mmol/L (3.5-5.1) Chloride Level 104 mmol/L (98-107) Carbon Dioxide Level 26 mmol/L (21-32) Anion Gap 7 (6-14) Blood Urea Nitrogen 13 mg/dL (7-20) Creatinine 0.8 mg/dL (0.6-1.0) Estimated GFR (Cockcroft-Gault) 70.9 Glucose Level 119 mg/dL (70-99) Calcium Level 7.7 mg/dL (8.5-10.1) Magnesium Level 1.9 mg/dL (1.8-2.4) Vancomycin Level Trough 17.9 mcg/mL (10.0-20.0) Vancomycin Last Dose Date Vancomycin Last Dose Time Problem List Problems Medical Problems: (1) Abscess of right breast Status: Acute (2) History of breast cancer Status: Acute Assessment/Plan plans for aspiration today in radiology abx Justicifation of Admission Dx: Justifications for Admission: Justification of Admission Dx: Yes Comments: abscess UMESH ALBRIGHT MD 09/03/21 1036: SURGICAL PROGRESS NOTE Assessment/Plan Agree with Martha's assessment and plan MO HARRISON APRN Sep 03, 2021 09:12 UMESH ALBRIGHT MD Sep 03, 2021 10:36
[2021-09-03] MEDS: cefTRIAXone IV Push 1 GM VIAL. IVP SCH (09:26)
[2021-09-03] MEDS ORDERED: TAMOXIFEN PO SCH (10:00)
--- NOTE | 2021-09-03 10:54 | NUR ---
SW following. Discussed with RN, pt from home with spouse, room air, regular diet, COVID-19 negative. Pt currently on IV abx. Possible procedure with IR today. RN advised no SW needs at this time. SW will continue to follow.
[2021-09-03 11:00] VITALS: BP 100/44
[2021-09-03] MEDS ORDERED: SALIVA STIMULANT AGENT 44ML SPRAY BOTTLE. PO PRN (11:30)
[2021-09-03] MEDS ORDERED: NON FORMULARY ITEM PO SCH (12:00)
[2021-09-03] MEDS: ENOXAPARIN 40 MG/0.4 ML SYRINGE. SQ SCH (13:52)
[2021-09-03 15:00] VITALS: BP 116/50
[2021-09-03 19:00] VITALS: BP 123/49
[2021-09-03] MEDS: LATANOPROST OU SCH (20:36)
[2021-09-03] MEDS: ATORVASTATIN CALCIUM 20 MG TABLET PO SCH (20:38)
[2021-09-03 23:00] VITALS: BP 137/56
[2021-09-04] MEDS: HYDROcodone/APAP 5/325MG 1 TAB TABLET PO PRN ×2 (01:09→08:37)
[2021-09-04] MEDS: IV NORMAL SALINE 1000ML BAG 1,000 ML IV SCH (01:10)
[2021-09-04] MEDS: VANCOMYCIN 1.5 GM in IV NORMAL SALINE 500ML BAG 500 ML IV SCH (02:22)
[2021-09-04 03:34] VITALS: BP 134/57
[2021-09-04 06:30] LABS: BASO % 1 % (0-3); EOS # 0.2 x10^3/uL (0.0-0.7); EOS % 3 % (0-3); HEMATOCRIT 29.8 % (36.0-47.0); HEMOGLOBIN 9.8 g/dL (12.0-15.5); LYMPH # 0.8 x10^3/uL (1.0-4.8); LYMPH % 13 % (24-48); MEAN CORPUSCULAR HEMOGLOBIN 31 pg (25-35); MEAN CORPUSCULAR HGB CONC 33 g/dL (31-37); MEAN CORPUSCULAR VOLUME 93 fL (79-100); MONO # 0.4 x10^3/uL (0.0-1.1); MONO % 7 % (0-9); NEUT # 4.6 x10^3/uL (1.8-7.7); NEUT % 76 % (31-73); PLATELET COUNT 130 x10^3/uL (140-400); RED BLOOD COUNT 3.21 x10^6/uL (3.50-5.40); RED CELL DISTRIBUTION WIDTH 13.4 % (11.5-14.5)
[2021-09-04 06:47] LABS: CREATININE 0.8 mg/dL (0.6-1.0); GFR 70.9; POTASSIUM 3.4 mmol/L (3.5-5.1)
[2021-09-04 07:00] VITALS: BP 147/62
[2021-09-04] MEDS: cefTRIAXone IV Push 1 GM VIAL. IVP SCH (08:34)
--- NOTE | 2021-09-04 10:08 | PDOC ---
SURGICAL PROGRESS NOTE DATE: 09/04/21 TIME: 10:07 Subjective overall does feel better aspiration not done yesterday Vital Signs Vital Signs Date Time Temp Pulse Resp B/P (MAP) Pulse Ox O2 Delivery O2 Flow Rate FiO2 09/04/21 08:37 Room Air 09/04/21 07:00 97.8 81 16 147/62 (90) 94 97.8 I&O Intake and Output 09/04/21 07:00 Intake Total 500 ml Output Total 0 ml Balance 500 ml IV Total 500 ml Output Urine Total 0 ml # Voids 1 General: Alert, Cooperative Skin: Other (less erythema and tenderness ) Labs Laboratory Tests Test 09/03/21 01:30 09/04/21 05:40 White Blood Count 8.9 x10^3/uL (4.0-11.0) 6.0 x10^3/uL (4.0-11.0) Red Blood Count 3.33 x10^6/uL (3.50-5.40) 3.21 x10^6/uL (3.50-5.40) Hemoglobin 10.0 g/dL (12.0-15.5) 9.8 g/dL (12.0-15.5) Hematocrit 31.0 % (36.0-47.0) 29.8 % (36.0-47.0) Mean Corpuscular Volume 93 fL (79-100) 93 fL (79-100) Mean Corpuscular Hemoglobin 30 pg (25-35) 31 pg (25-35) Mean Corpuscular Hemoglobin Concent 32 g/dL (31-37) 33 g/dL (31-37) Red Cell Distribution Width 13.2 % (11.5-14.5) 13.4 % (11.5-14.5) Platelet Count 124 x10^3/uL (140-400) 130 x10^3/uL (140-400) Neutrophils (%) (Auto) 79 % (31-73) 76 % (31-73) Lymphocytes (%) (Auto) 12 % (24-48) 13 % (24-48) Monocytes (%) (Auto) 8 % (0-9) 7 % (0-9) Eosinophils (%) (Auto) 1 % (0-3) 3 % (0-3) Basophils (%) (Auto) 1 % (0-3) 1 % (0-3) Neutrophils # (Auto) 7.0 x10^3/uL (1.8-7.7) 4.6 x10^3/uL (1.8-7.7) Lymphocytes # (Auto) 1.0 x10^3/uL (1.0-4.8) 0.8 x10^3/uL (1.0-4.8) Monocytes # (Auto) 0.7 x10^3/uL (0.0-1.1) 0.4 x10^3/uL (0.0-1.1) Eosinophils # (Auto) 0.1 x10^3/uL (0.0-0.7) 0.2 x10^3/uL (0.0-0.7) Basophils # (Auto) 0.1 x10^3/uL (0.0-0.2) 0.0 x10^3/uL (0.0-0.2) Sodium Level 137 mmol/L (136-145) 147 mmol/L (136-145) Potassium Level 3.5 mmol/L (3.5-5.1) 3.4 mmol/L (3.5-5.1) Chloride Level 104 mmol/L (98-107) 113 mmol/L (98-107) Carbon Dioxide Level 26 mmol/L (21-32) 25 mmol/L (21-32) Anion Gap 7 (6-14) 9 (6-14) Blood Urea Nitrogen 13 mg/dL (7-20) 9 mg/dL (7-20) Creatinine 0.8 mg/dL (0.6-1.0) 0.8 mg/dL (0.6-1.0) Estimated GFR (Cockcroft-Gault) 70.9 70.9 Glucose Level 119 mg/dL (70-99) 92 mg/dL (70-99) Calcium Level 7.7 mg/dL (8.5-10.1) 8.0 mg/dL (8.5-10.1) Magnesium Level 1.9 mg/dL (1.8-2.4) 2.0 mg/dL (1.8-2.4) Vancomycin Level Trough 17.9 mcg/mL (10.0-20.0) Vancomycin Last Dose Date Vancomycin Last Dose Time Laboratory Tests Test 09/04/21 05:40 White Blood Count 6.0 x10^3/uL (4.0-11.0) Red Blood Count 3.21 x10^6/uL (3.50-5.40) Hemoglobin 9.8 g/dL (12.0-15.5) Hematocrit 29.8 % (36.0-47.0) Mean Corpuscular Volume 93 fL (79-100) Mean Corpuscular Hemoglobin 31 pg (25-35) Mean Corpuscular Hemoglobin Concent 33 g/dL (31-37) Red Cell Distribution Width 13.4 % (11.5-14.5) Platelet Count 130 x10^3/uL (140-400) Neutrophils (%) (Auto) 76 % (31-73) Lymphocytes (%) (Auto) 13 % (24-48) Monocytes (%) (Auto) 7 % (0-9) Eosinophils (%) (Auto) 3 % (0-3) Basophils (%) (Auto) 1 % (0-3) Neutrophils # (Auto) 4.6 x10^3/uL (1.8-7.7) Lymphocytes # (Auto) 0.8 x10^3/uL (1.0-4.8) Monocytes # (Auto) 0.4 x10^3/uL (0.0-1.1) Eosinophils # (Auto) 0.2 x10^3/uL (0.0-0.7) Basophils # (Auto) 0.0 x10^3/uL (0.0-0.2) Sodium Level 147 mmol/L (136-145) Potassium Level 3.4 mmol/L (3.5-5.1) Chloride Level 113 mmol/L (98-107) Carbon Dioxide Level 25 mmol/L (21-32) Anion Gap 9 (6-14) Blood Urea Nitrogen 9 mg/dL (7-20) Creatinine 0.8 mg/dL (0.6-1.0) Estimated GFR (Cockcroft-Gault) 70.9 Glucose Level 92 mg/dL (70-99) Calcium Level 8.0 mg/dL (8.5-10.1) Magnesium Level 2.0 mg/dL (1.8-2.4) Problem List Problems Medical Problems: (1) Abscess of right breast Status: Acute (2) History of breast cancer Status: Acute Assessment/Plan stable, would rec continue abx FU in clinic tuesday with Dr Fercho Flemingicifation of Admission Dx: Justifications for Admission: Justification of Admission Dx: Yes 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
--- NOTE | 2021-09-04 10:39 | PDOC ---
[facility] PROGRESS NOTE Date of Service DOS: DATE: 09/04/21 TIME: 10:38 Chief Complaint Chief Complaint Right-sided mastitis, likely abscess vs seroma History of fibromyalgia History of hypertension History of breast carcinoma status post hormonal therapy and radiation in February 2021 History of Present Illness History of Present Illness 09/04/2021 Patient seen and examined Discussed with RN Chart reviewed The imaging did not show any breast cancer but rather a seroma versus abscess Patient states she is feels better and would like to go home I left prescriptions for Zyvox and Augmentin and will put the discharge order in as I do not think any procedures will be available for several days due to the holidays 09/02/2021 Patient seen and examined. Discussed with RN. Chart Reviewed. Patient awake and NAD. Patient's right breast looked mildly swollen and mildly erythematous compared to the left breast. Vancomycin hanging. 09/03: Afebrile overnight. D/w IR and area can be drained, recommend under mammography. She has low appetite and is a little anxious, also with some lower back pain, chest wall pain and still with swollen, red right breast. Vitals/I&O Vitals/I&O: Vital Signs Date Time Temp Pulse Resp B/P (MAP) Pulse Ox O2 Delivery O2 Flow Rate FiO2 09/04/21 08:37 Room Air 09/04/21 08:00 2.0 09/04/21 07:00 97.8 81 16 147/62 (90) 94 97.8 I & O 09/03/21 09/03/21 09/04/21 15:00 23:00 07:00 Intake Total 500 ml Output Total 0 ml Balance 500 ml Physical Exam General: Alert, Cooperative Heart: Regular rate Lungs: Clear Abdomen: Normal bowel sounds Extremities: No cyanosis Skin: Other (less erythema and tenderness ) Labs Labs: Laboratory Tests Test 09/04/21 05:40 White Blood Count 6.0 x10^3/uL (4.0-11.0) Red Blood Count 3.21 x10^6/uL (3.50-5.40) Hemoglobin 9.8 g/dL (12.0-15.5) Hematocrit 29.8 % (36.0-47.0) Mean Corpuscular Volume 93 fL (79-100) Mean Corpuscular Hemoglobin 31 pg (25-35) Mean Corpuscular Hemoglobin Concent 33 g/dL (31-37) Red Cell Distribution Width 13.4 % (11.5-14.5) Platelet Count 130 x10^3/uL (140-400) Neutrophils (%) (Auto) 76 % (31-73) Lymphocytes (%) (Auto) 13 % (24-48) Monocytes (%) (Auto) 7 % (0-9) Eosinophils (%) (Auto) 3 % (0-3) Basophils (%) (Auto) 1 % (0-3) Neutrophils # (Auto) 4.6 x10^3/uL (1.8-7.7) Lymphocytes # (Auto) 0.8 x10^3/uL (1.0-4.8) Monocytes # (Auto) 0.4 x10^3/uL (0.0-1.1) Eosinophils # (Auto) 0.2 x10^3/uL (0.0-0.7) Basophils # (Auto) 0.0 x10^3/uL (0.0-0.2) Sodium Level 147 mmol/L (136-145) Potassium Level 3.4 mmol/L (3.5-5.1) Chloride Level 113 mmol/L (98-107) Carbon Dioxide Level 25 mmol/L (21-32) Anion Gap 9 (6-14) Blood Urea Nitrogen 9 mg/dL (7-20) Creatinine 0.8 mg/dL (0.6-1.0) Estimated GFR (Cockcroft-Gault) 70.9 Glucose Level 92 mg/dL (70-99) Calcium Level 8.0 mg/dL (8.5-10.1) Magnesium Level 2.0 mg/dL (1.8-2.4) Assessment and Plan Assessmemt and Plan Problems Medical Problems: (1) Abscess of right breast Status: Acute (2) History of breast cancer Status: Acute Right-sided mastitis, likely abscess vs seroma History of fibromyalgia History of hypertension History of breast carcinoma status post hormonal therapy and radiation in February 2021 Plan Discharge on p.o. antibiotics as I do not think any procedures will be available for several days due to the holidays and the patient feels better and wants to go home See dictation Comment Review of Relevant I have reviewed the following items mariela (where applicable) has been applied. Medications: Current Medications Medications (Trade) Dose Ordered Sig/Tiesha Route PRN Reason Start Time Stop Time Status Last Admin Dose Admin Duloxetine HCl (Cymbalta) 60 mg DAILYWLUN PO 09/03/21 12:00 09/03/21 12:33 Non-Formulary Medication (Non Formulary Item) 1 ea DAILYWLUN PO 09/03/21 12:00 09/03/21 12:34 Saliva Substitute (Biotene Moisturizing Mouth) 2 spray PRN Q15MIN PRN PO DRY MOUTH 09/03/21 11:30 09/03/21 12:40 Justifications for Admission Other Justification Breast infection JO-ANN ANDERS III DO Sep 04, 2021 10:39
[2021-09-04] MEDS ORDERED: HYDR-2761 PO (10:41)
[2021-09-04 11:00] VITALS: BP 148/52
--- NOTE | 2021-09-04 12:00 | NUR ---
Discharge Note: BHUMIKA RAMON [address] [place] [address] Discharge instructions and discharge home medications reviewed with Patient and a copy given. All questions have been answered and understanding verbalized. The following instructions and handouts were given: f/u with PCP within two weeks. Discontinued lines and drains: Peripheral IV intact. Patient discharged to Home or Self Care with Family Member via wheelchair.
--- NOTE | 2021-09-04 15:06 | DS ---
DATE OF DISCHARGE: 09/04/2021 ADMISSION DIAGNOSIS: Right breast abscess. DISCHARGE DIAGNOSES: Resolving right breast abscess, history of breast cancer, polypharmacy, depression, anxiety, glaucoma, asthma, and hyperlipidemia. CONSULTANTS: Hematology/Oncology Dr. Jane and General Surgery, Dr. Wheeler. PROCEDURES: None. HOSPITAL COURSE: The patient is a pleasant, middle-aged female who presented with right breast abscess. We admitted the patient, gave her IV antibiotics. I put her on Rocephin and vancomycin empirically. She states once I started Zosyn, her symptoms got a lot better. I doubt this is MRSA. We did consult IR, but since the holidays are here, I doubt she is going to be able to get a drain placed. She says she feels better. She wants to go home today. I saw and examined her. We will go ahead and let her go home with p.o. Augmentin and p.o. Zyvox. DISPOSITION: Home. ACTIVITY: As tolerated. DIET: Low sodium. DISCHARGE MEDICATIONS: Please see the MRAD. Other medications: Zyvox 600 mg p.o. b.i.d, Augmentin 875 mg p.o. b.i.d., hydrocodone 5 mg q 4. hours p.r.n., albuterol, atorvastatin 20 mg a day, Cymbalta 60 mg a day, Cosopt eyedrops, tamoxifen 20 mg a day, and Ambien 5 mg at bedtime. TOTAL TIME: 32 minutes. JACQUE/MELLISSA DR: MILLIE/abdelrahman TID: [id number]
== END 2021-09-04 12:00 | disposition home or self-care (01) | DRG 601 ==
LOC: ER 09:03 → 5 SOUTH 10:27 → ER 12:09 → OBSVTOIN 09-02 11:47
PROVIDERS: ADMIT Internal Medicine; ATTEND Internal Medicine
DX: N61.1 Abscess of the breast and nipple (principal); E78.5 Hyperlipidemia, unspecified; I10 Essential (primary) hypertension; J45.909 Unspecified asthma, uncomplicated; M79.7 Fibromyalgia; Z85.3 Personal history of malignant neoplasm of breast; Z87.891 Personal history of nicotine dependence; Z90.49 Acquired absence of other specified parts of digestive tract; Z90.710 Acquired absence of both cervix and uterus; Z96.649 Presence of unspecified artificial hip joint; F32.A Depression, unspecified; F41.9 Anxiety disorder, unspecified; Z88.0 Allergy status to penicillin; Z88.8 Allergy status to other drugs, medicaments and biological substances; Z91.040 Latex allergy status; Z20.822 Contact with and (suspected) exposure to COVID-19; B95.62 Methicillin resistant Staphylococcus aureus infection as the cause of diseases classified elsewhere
CPT/HCPCS: 36415; 76641; 80048; 80202; 83605; 83735; 84100; 84145; 85025; 87040; 87426; 96365; 96375; G0378; G0379; J0696; J1170; J1650; J2270; J2405; J3370; J7030; J7040; J7050; U0003; U0005; 99285-25

== ENCOUNTER 2021-09-14 07:06 | Outpatient (CLI) | payer MEDICARE ==
[~2021-09-14] VITALS: Ht 167.6 cm; Wt 105.0 kg
[2021-09-14] VITALS (12 sets, daily range): BP systolic 99–154; BP diastolic 49–77
[~2021-09-14 07:06] MED LIST changes: +TAMO20TA PO; +ZOLP5TAB5 PO
[2021-09-14 08:06] LABS: PROTHROMBIN TIME PATIENT 12.2 SEC (11.7-14.0)
[2021-09-14] MEDS ORDERED: LIDOCAINE WITH 8.4% SOD BICARB 3 ML DISP.SYRIN. ONE (08:34)
[2021-09-14] MEDS ORDERED: MIDAZOLAM HCL/PF 2 MG/2 ML VIAL. ONE (09:00)
[2021-09-14] MEDS ORDERED: fentaNYL PF VIAL 100 MCG/2 ML VIAL ONE (09:00)
[2021-09-14] MEDS ORDERED: fentaNYL PF VIAL 100 MCG/2 ML VIAL IV ONE (09:15)
[2021-09-14] MEDS ORDERED: LIDOCAINE WITH 8.4% SOD BICARB 3 ML DISP.SYRIN. IJ ONE (09:15)
[2021-09-14] MEDS ORDERED: MIDAZOLAM HCL/PF 2 MG/2 ML VIAL. IV ONE (09:15)
--- NOTE | 2021-09-14 10:45 | NUR ---
Discharge Note: BHUMIKA RAMON Discharge instructions and discharge home medications reviewed with Patient and a copy given. All questions have been answered and understanding verbalized. The following instructions and handouts were given: bulb home care and adult moderate sedation Discontinued lines and drains: Peripheral IV intact. Patient discharged to Home or Self Care withSpousevia Wheelchair
--- NOTE | 2021-09-14 11:58 | RAD ---
Ultrasound-guided drainage, right breast seroma versus abscess 09/14/2021 INDICATION: Right breast edema and erythema. Prior ultrasound was obtained demonstrating complex flui d collection possibly an abscess or seroma. Consent: The procedure was explained in its entirety to the patient or the patients designated repres entative by a member of the treatment team, including a discussion of the risks, benefits and commonl y accepted alternatives to the procedure, as well as the expected consequences of no therapy whatsoev er. Discussion of the risks included, but was not limited to, those that are most frequent and thos e that are rare but possibly severe or life-threatening, as well as the possibility of unforeseen com plications. Procedural details: Of the right breast was prepped and draped using sterile barrier technique. 1% li docaine was administered for local anesthesia. Ultrasound evaluation demonstrates a multiloculated co llection underneath the surgical scar in the superior lateral right breast. Collection was accessed u sing a 5 [place] sheathed needle. A guidewire was advanced into the collection over which, following s erial dilatation, a 10 [place] drain was placed. Serous, debris-containing fluid was aspirated. Approx imately 100 cc was removed. Samples were sent to pathology for further evaluation including Gram stai n and culture. The drain was secured in place and sterile dressings were applied. Sedation: The procedure was performed under conscious sedation including continuous cardiopulmonary m onitoring via a dedicated sedation nurse. [id number] sedation time: 28 minutes IMPRESSION: Ultrasound-guided drainage, right breast seroma versus abscess. Electronically signed by: Jt Dunlap MD (09/14/2021 11:56 AM) [id number]
== END 2021-09-14 10:50 | disposition home or self-care (01) ==
LOC: INTRAD 07:06
PROVIDERS: ATTEND Surgery
DX: D05.11 Intraductal carcinoma in situ of right breast (principal); E78.00 Pure hypercholesterolemia, unspecified; E66.9 Obesity, unspecified; M19.90 Unspecified osteoarthritis, unspecified site; Z87.891 Personal history of nicotine dependence; Z90.710 Acquired absence of both cervix and uterus; Z98.890 Other specified postprocedural states; Z79.899 Other long term (current) drug therapy; Z88.0 Allergy status to penicillin; Z88.5 Allergy status to narcotic agent; Z88.8 Allergy status to other drugs, medicaments and biological substances; Z80.3 Family history of malignant neoplasm of breast
CPT/HCPCS: 10030; 36415; 85610; 87071; 87075; 99152; 99153; C1769; C1892; C1894; J2250; J3010; J3490